=== PATIENT | male | born 1960 | race Caucasian/White ===

== ENCOUNTER 2017-03-22 09:32 | Observation (INO) ==
[2017-03-22] MEDS ORDERED: ENOXAPARIN 100 MG/ML SYRINGE SUBCUT STA (10:17)
[2017-03-22] MEDS ORDERED: ASPIRIN 325 MG TABLET PO STA (10:17)
[2017-03-22] MEDS ORDERED: METOPROLOL TARTRATE 5 MG/5 ML VIAL IV STA (10:17)
--- NOTE | 2017-03-22 10:20 | EKG Report ---
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
[2017-03-22 10:29] LABS: Basophils % 0.6 % (0.0-0.8); Hematocrit 32.8 VOL% (42.0-52.0); Hemoglobin 11.2 GM/DL (14.0-18.0); Immature Granulocytes % 0.6 %; Immature Granulocytes Absolute 0.04 #; Lymphocytes % 29.7 % (21.2-54.2); Mean Corpuscular HGB Conc 34.1 GM/DL (32-36); Mean Corpuscular Hemoglobin 26 PG (27-34); Mean Corpuscular Volume 75.8 FL (87-102); Mean Platelet Volume 9.9 FL (9.6-12.0); Monocytes # 0.8 10*3/uL (0.11-0.8); Monocytes % 10.9 % (1.7-12.7); Neutrophils % 58.2 % (38.7-73.9); Platelet Count 159 T/CUMM (130-400); Red Blood Count 4.33 MC/CUMM (3.8-5.5); Red Cell Distribution Width 13.2 % (9.3-17.3); White Blood Count 6.9 T/CUMM (4-12)
[2017-03-22] MEDS ORDERED: METOPROLOL TARTRATE 5 MG/5 ML VIAL IV ONE (10:32)
[2017-03-22] MEDS ORDERED: ENOXAPARIN 120 MG/0.8 ML SYRINGE SUBCUT ONE (10:32)
[2017-03-22] MEDS ORDERED: ASPIRIN 325 MG TABLET ONE (10:32)
--- NOTE | 2017-03-22 10:57 | XRay Report ---
History: Chest pain Date: 03/22/2017 Study: Chest x-ray PA and lateral Comparison exam: September 06, 2012 chest x-ray The cardiomediastinal silhouette and pulmonary vasculature are unremarkable. The lungs and pleural spaces are clear. The osseous structures are unremarkable. Impression: No acute cardiopulmonary process. No significant interval change PROCEDURE INTERPRETED AT [facility] DEPARTMENT OF RADIOLOGY Final Report Signed by: Dr. Janiya Morales
[2017-03-22 11:01] LABS: Albumin 3.6 G/DL (3.4-5.0); Bilirubin,Total 0.4 MG/DL (0.2-1.0); Calcium 9.4 MG/DL (8.5-10.1); Magnesium 1.5 MG/DL (1.8-2.4); Osmolality,Calculated 280.5 MOS/KG (273-304); Potassium 3.8 MMOL/L (3.5-5.1); Total Protein 6.6 G/DL (6.4-8.3)
--- NOTE | 2017-03-22 11:08 | Ultrasound Report ---
Exam: US abdomen Date: 03/22/2017 10:17 AM Comparison: None Indication: Right upper quadrant pain Technique:[Multiple transabdominal real-time scans were obtained of the abdomen. Color flow scans obtained. Ultrasound images were captured and stored.] Findings: No gallstones identified. The gallbladder is contracted with wall measuring 2.3 mm. CBD is normal in size measuring 3.8 mm. Elongation of the right lobe of the liver with no definite masses. The spleen is enlarged with a splenic index of 986. Right kidney measures 128 mm length. Left kidney measures 125 mm in length. No masses or hydronephrosis. The pancreas, aorta including the aortic bifurcation are obscured by bowel gas. Color flow documented in the IVC and portal vein. Impression: Elongation of the right lobe of liver with nonspecific contraction of the gallbladder. Splenomegaly with a splenic index of 986. The pancreas and aorta are obscured by bowel gas. The Ultrasound images were captured and stored. PROCEDURE INTERPRETED AT [facility] DEPARTMENT OF RADIOLOGY Final Report Signed by: Dr. Cynthia Patterson
--- NOTE | 2017-03-22 11:58 | Emergency Department Note ---
Radha Alvarez Brittany, am scribing for, and in the presence of, Mark Garcia MD 10:24. Jose Alvarez Phillip K, MD, personally performed the services described in this documentation, ascribed by Gabriela Garcia in my presence, and it is both accurate and complete . Arrival - Arrival Chief Complaint: Chest Pain Stated Complaint: chest pain, sob ED Nursing Triage Note: chest pain for several days. reports that over the weekend that he has become increasingly sob over the weekend. was seen by dr andres last week and wore a holter monitor. reports a pain across left side of chest this morning. pt is diaphoretic in triage. reports glucose has also been dropping in the middle of the night the last two nights. Mode of Arrival: Ambulatory Limitations: No Limitations Source: Patient Time Seen by Provider: 03/22/17 10:01 - History of Present Illness HPI Narrative: This is a 56 y/o white male,who presents to the ED with c/o CP which started 9 days ago. He states he was seen by Dr. Andres when the chest pain started. He states he was placed on a heart monitor. He describes the chest pain as sharp. He reports movements do not affect the chest pain. He states he was SOB over the weekend. He denies any nausea or vomiting. He notes a cough, and 2 episodes of hypoglycemia over the past 2 nights. He states last night his BS was 40 and the night before his BS was down to 50. during the night. Pt reports RUQ and LUQ tenderness as well. Pt has no other complaints/pain in the ED at this time. Pt has a PMhx of IDDM, HTN, and PTSD. Pt has had an orthopedic surgery. Pt denies a family medical Hx. Pt is a former smoker. Onset (ago): day(s) (Started 4 days ago) Consistency: constant Severity: moderate Quality: sharp Allergies/Adverse Reactions: Allergies Allergy/AdvReac Type Severity Reaction Status Date / Time Penicillins Allergy Unknown/Unable Verified 03/22/17 11:03 to obtain Tetanus Vaccines and Toxoid AdvReac Fatigued Verified 03/22/17 11:03 Home Medications: Home Medications Medication Instructions Recorded Confirmed Type ALPRAZolam [Xanax] 2 mg PO TID PRN 03/22/17 03/22/17 History Allopurinol 300 mg PO DAILY 03/22/17 03/22/17 History Aspirin Chew Tab 81 mg PO DAILY 03/22/17 03/22/17 History Clotrimazole/Betamethasone Dip 1 applic TOP BID 03/22/17 03/22/17 History [Clotrimazole/Betamethasone Cream] Cyanocobalamin (Vitamin B-12) 5,000 mcg PO DAILY 03/22/17 03/22/17 History [Vitamin B-12] Duloxetine HCl [Cymbalta] 60 mg PO DAILY 03/22/17 03/22/17 History Escitalopram [Lexapro] 20 mg PO DAILY 03/22/17 03/22/17 History Furosemide Tab [Lasix Tab] 40 mg PO DAILY 03/22/17 03/22/17 History Glimepiride 4 mg PO BID 03/22/17 03/22/17 History Glucosamine HCl 1,500 mg PO DAILY 03/22/17 03/22/17 History Hydrocodone/Acetaminophen [[place] 1 each PO QID PRN 03/22/17 03/22/17 History 10-325 Tablet] Levothyroxine Tab [Synthroid Tab] 50 mcg PO DAILY 03/22/17 03/22/17 History Losartan/Hydrochlorothiazide 1 each PO DAILY 03/22/17 03/22/17 History [Losartan-Hctz 100-25 mg Tab] Magnesium Oxide 400 mg PO DAILY 03/22/17 03/22/17 History Metformin HCl 1,000 mg PO BID 03/22/17 03/22/17 History Mupirocin 2% Oint [Bactroban 2% 1 applic TOP TID 03/22/17 03/22/17 History Oint] Omeprazole 40 mg PO DAILY 03/22/17 03/22/17 History Pioglitazone HCl 45 mg PO DAILY 03/22/17 03/22/17 History Potassium Chloride 40 meq PO BID 03/22/17 03/22/17 History Tamsulosin [Flomax] 0.4 mg PO DAILY 03/22/17 03/22/17 History Triamcinolone Acetonide 1 applic TOP BID 03/22/17 03/22/17 History [Triamcinolone 0.1% Cream] cloNIDine HCl [Clonidine HCl] 0.3 mg PO DAILY 03/22/17 03/22/17 History Review of System - Review of System 12 point system: reviewed and no additional remarkable complaints except as stated - Review of System Constitutional: Present: diaphoresis, night sweats Respiratory: Present: cough Cardiovascular: Present: chest pain Gastrointestinal: Absent: nausea, vomiting Medical,Surgical,& Family Hx - Medical History Cardio: History of: Hypertension Psychological: History of: Psychiatric Problems (ptsd) Endocrine: History of: Diabetes Mellitus (IDDM) - Social History Smoking Status: Former smoker Exam Vital Signs: Vital Signs Temperature 97.3 F L 03/22/17 09:45 Pulse Rate 111 H 03/22/17 09:45 Respiratory Rate 18 03/22/17 10:05 Blood Pressure 155/92 03/22/17 09:45 O2 Sat by Pulse Oximetry 98 03/22/17 09:45 - General General appearance: alert, in no apparent distress - Head Head exam: Present: atraumatic, normocephalic, normal inspection - Eye Eye exam: Present: normal appearance, PERRL, EOMI. Absent: nystagmus, miosis, mydriasis - ENT ENT exam: Present: normal exam, normal oropharynx, mucous membranes moist, TM's normal bilaterally, normal external ear exam - Neck Neck exam: Present: normal inspection, full ROM, trachea midline. Absent: tenderness, meningismus, lymphadenopathy, thyromegaly - Chest Chest inspection: Present: normal inspection, symmetric chest wall rise. Absent : tenderness, rash, abscess - Respiratory Respiratory exam: Present: normal lung sounds bilaterally. Absent: rales, respiratory distress, rhonchi, stridor, wheezes - Cardiovascular Cardiovascular exam: Present: normal rhythm, tachycardia, normal heart sounds. Absent: murmur, rubs, gallop, clicks, JVD - Abdominal Exam Abdominal exam: Present: soft, distention, tenderness (RUQ tenderness and LUQ tenderness), normal bowel sounds. Absent: guarding, rebound, rigidity - Rectal Exam Rectal exam: Present: deferred - Extremities Exam Extremities exam: Present: normal inspection, full ROM, normal capillary refill. Absent: tenderness, pedal edema, joint swelling, calf tenderness - Back Exam Back exam: Present: normal inspection, full ROM. Absent: tenderness, muscle spasm, rashes - Neurological Exam Neurological exam: Present: alert, oriented X3, CN II-XII intact. Absent: motor sensory deficit - Psychiatric Psychiatric exam: Present: normal affect, normal mood. Absent: depressed, agitated, anxious, flat affect, manic - Skin Skin exam: Present: warm, dry, intact, normal color. Absent: rash, cyanosis, diaphoresis, erythema, pallor, mottled Course Course Narrative: Patient discussed with the hospitalist. Results - Labs CBC & BMP: 03/22/17 10:21 03/22/17 10:21 Lab Results: I have reviewed the patients labs Labs: Laboratory Tests 03/22/17 03/22/17 03/22/17 10:17 10:21 10:21 WBC 6.9 RBC 4.33 Hgb 11.2 L Hct 32.8 L MCV 75.8 L MCH 26 L MCHC 34.1 RDW 13.2 Plt Count 159 MPV 9.9 Neut % (Auto) 58.2 Lymph % (Auto) 29.7 [place] % (Auto) 10.9 Eos % (Auto) 0.0 Baso % (Auto) 0.6 Neut # (Auto) 4.0 Lymph # (Auto) 2.0 [place] # (Auto) 0.8 Eos # (Auto) 0.0 Baso # (Auto) 0.0 Immature Gran % 0.6 Nucleated RBC % 0.0 Immature Gran # 0.04 Nucleated RBCs # 0.00 Sodium 139 Potassium 3.8 Chloride 101 Carbon Dioxide 26 Anion Gap 15.8 H BUN 20 H Creatinine 0.80 GFR Calculation 138 BUN/Creatinine Ratio 25.00 H Glucose 124 H POC Glucose 124 H Calculated Osmolality 280.5 Calcium 9.4 Magnesium 1.5 L Total Bilirubin 0.40 AST 30 ALT 30 Alkaline Phosphatase 90 Troponin I Total Protein 6.6 Albumin 3.6 Globulin 3.0 Albumin/Globulin Ratio 1.2 Lipase 354.0 03/22/17 10:21 WBC RBC Hgb Hct MCV MCH MCHC RDW Plt Count MPV Neut % (Auto) Lymph % (Auto) [place] % (Auto) Eos % (Auto) Baso % (Auto) Neut # (Auto) Lymph # (Auto) [place] # (Auto) Eos # (Auto) Baso # (Auto) Immature Gran % Nucleated RBC % Immature Gran # Nucleated RBCs # Sodium Potassium Chloride Carbon Dioxide Anion Gap BUN Creatinine GFR Calculation BUN/Creatinine Ratio Glucose POC Glucose Calculated Osmolality Calcium Magnesium Total Bilirubin AST ALT Alkaline Phosphatase Troponin I < 0.015 Total Protein Albumin Globulin Albumin/Globulin Ratio Lipase - EKG EKG results: interpreted by ERMD (Sinus tachycardia, possible old inferior IL) - Diagnostic Findings Procedure: Chest x-ray: report reviewed by me (No acute cardiopulmonary process. No significant interval change), Ultrasound: report reviewed by me ( Abdomen US: Elongation of the right lobe of liver with nonspecific contraction of the gallbladder. Splenomegaly with a splenic index of 986. The pancreas and aorta are obscured by bowel gas. ) Disposition Clinical Impression: Chest pain, Anemia, Right upper quadrant abdominal tenderness, Diabetes, History of hypoglycemia, Sinus tachycardia Case discussed with: patient Disposition: Still a Patient Condition: Guarded
--- NOTE | 2017-03-22 13:42 | EKG Report ---
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
[2017-03-22] MEDS ORDERED: ACETAMINOPHEN 325 MG TABLET PO PRN (13:45)
[2017-03-22] MEDS ORDERED: ONDANSETRON 4 MG/2 ML VIAL IV PRN (13:45)
[2017-03-22] MEDS ORDERED: ALPRAZolam 0.5 MG TABLET PO PRN (13:48)
[2017-03-22] MEDS: ENOXAPARIN 40 MG/0.4 ML SYRINGE SUBCUT SCH (14:38)
[2017-03-22 14:42] LABS: CKMB % 2.2 %; Troponin I Only < 0.015 NG/ML (0.00-0.045)
--- NOTE | 2017-03-22 14:47 | Hospitalist History & Physical ---
Assessment and Plan (1) Chest pain Status: Acute Assessment and plan: Patient admitted for observation overnight. Trend cardiac enzymes. Order cardiac stress test for the a.m. Consult cardiology. Patient is followed by Dr. Andres and was initially scheduled for an outpatient stress test on April 01. Current Visit: Yes (2) Diabetes mellitus Status: Acute Assessment and plan: Accu-Cheks ACHS. Initiate sliding scale per protocol. Continue home medications. Current Visit: Yes (3) Sinus tachycardia Status: Acute Current Visit: Yes History of Present Illness Chief complaint: Chest pain History of present illness: Mr. Arnold is a 56 year old male with a past medical history significant for hypertension, diabetes mellitus, panic attack who presents to the ER with complaints of chest pain with onset 9 days ago. Patient reports that this chest pain began a little over a week ago and he was seen by Dr. Andres last week and placed on a 24-hour Holter monitor. He states that a few days after returning the monitor, he began to feel short of breath with increasing chest pain focus on his right chest wall. He knows that as he has panic attacks frequently, the tachycardia and chest pain is not abnormal. He normally takes Xanax for this pain and it typically resolves. However the pain did not subside this morning. Patient states that he woke up this morning "burning up" and having soaked the bed with sweat. He also notes that his blood sugar was 50 this morning and 40 the night before. Patient currently takes 3 diabetic medications to control his blood sugars including metformin, Amaryl and Actos. On admission, the patient was noted to be in chest pain, shortness of breath and mildly diaphoretic. Patient notes that with oxygen his chest pain subsided. However he was noted to have epigastric tenderness to palpation. Ultrasound of the gallbladder is unremarkable. Patient states that he currently "feels fine". He denies headache, blurry vision, chest pain on inspiration, chest pain to palpation, nausea or vomiting, near syncope, numbness or tingling. Patient noted that he was scheduled to have a stress test on April [address] Andres. Lab work on admission reveal: WBC 6.9, hemoglobin 11.2, hematocrit 32.8, sodium 139, potassium 3.8, chloride 101, BUN 20, creatinine 0.80, glucose 124, magnesium 1.5. Troponin is negative. Chest x -ray is unremarkable. Case been discussed with Dr. Matta, and the patient will be admitted to the hospital medicine service for observation and treatment. Patient is a full code. Home medicines have been reviewed and reconciled. Home Medications Medication Instructions Recorded Confirmed Type ALPRAZolam [Xanax] 2 mg PO TID PRN 03/22/17 03/22/17 History Aspirin Chew Tab 81 mg PO DAILY 03/22/17 03/22/17 History Cyanocobalamin (Vitamin B-12) 5,000 mcg PO DAILY 03/22/17 03/22/17 History [Vitamin B-12] Duloxetine HCl [Cymbalta] 60 mg PO DAILY 03/22/17 03/22/17 History Furosemide Tab [Lasix Tab] 40 mg PO DAILY 03/22/17 03/22/17 History Glimepiride 4 mg PO BID 03/22/17 03/22/17 History Glucosamine HCl 1,500 mg PO DAILY 03/22/17 03/22/17 History Hydrocodone/Acetaminophen [[place] 1 each PO QID PRN 03/22/17 03/22/17 History 10-325 Tablet] Levothyroxine Tab [Synthroid Tab] 50 mcg PO DAILY@0700 03/22/17 03/22/17 History Losartan/Hydrochlorothiazide 1 each PO DAILY 03/22/17 03/22/17 History [Losartan-Hctz 100-25 mg Tab] Magnesium Oxide 400 mg PO DAILY 03/22/17 03/22/17 History Metformin HCl 1,000 mg PO BID 03/22/17 03/22/17 History Methylsulfonylmethane [MSM] 1,500 mg PO DAILY 03/22/17 03/22/17 History Omeprazole 40 mg PO DAILY 03/22/17 03/22/17 History Pioglitazone HCl 45 mg PO DAILY 03/22/17 03/22/17 History Potassium Chloride 40 meq PO BID 03/22/17 03/22/17 History Tamsulosin [Flomax] 0.4 mg PO DAILY 03/22/17 03/22/17 History cloNIDine HCl [Clonidine HCl] 0.3 mg PO DAILY 03/22/17 03/22/17 History Allergies Allergy/AdvReac Type Severity Reaction Status Date / Time Penicillins Allergy Unknown/Unable Verified 03/22/17 11:03 to obtain Tetanus Vaccines and Toxoid AdvReac Fatigued Verified 03/22/17 11:03 Medical,Surgical,& Family Hx - Medical History Cardio: History of: Cardiac Dysrhythmia, Hypertension Psychological: History of: Psychiatric Problems (ptsd) Endocrine: History of: Diabetes Mellitus (IDDM), Dyslipidemia, Thyroid Disorder Gastrointestinal: History of: GERD - Family History Family History: Reports;: Family Heart Disease, Family Hypertension - Social History Smoking Status: Former smoker Frequency of Alcohol Use: None Type of Drug Use: None Marital Status: Lives With:: Alone (Patient lives in [place] while spouse lives in [place]) Functional capacity: independent ambulation - Constitutional Constitutional: Present: night sweats. Absent: chills, fatigue, headache(s) - EENT Eyes: Absent: blurry vision, loss of vision Ears: Absent: decreased hearing, ear pain - Cardiovascular Cardiovascular: Present: chest pain at rest, diaphoresis, dyspnea. Absent: chest pain with activity - Respiratory Respiratory: Present: dyspnea. Absent: cough, wheezing - Gastrointestinal Gastrointestinal: Absent: abdominal pain, nausea, vomiting - Genitourinary Genitourinary: Absent: dysuria, flank pain - Neurological Neurological: Absent: abnormal gait, abnormal speech, dizziness, syncope - Psychiatric Psychiatric: Present: anxiety. Absent: depression - Endocrine Endocrine: Absent: cold intolerance, fatigue - Hematologic/Lymphatic Hematologic/Lymphatic: Absent: easy bleeding, easy bruising Exam - Constitutional Vitals: Period Temp Pulse Resp BP Sys/Zeng Pulse Ox Last 24 Hr 97.3 F-97.5 F 89-111 16-24 108-155/79-92 95-99 Exam: General appearance: obese, no acute distress - Head Head exam: Present: normocephalic, atraumatic - Eye Eye exam: Present: EOMI. Absent: conjunctival injection, nystagmus Pupils: Present: DAVID, normal accommodation - ENT ENT exam: Present: normal exam, normal external ear exam - Neck Neck exam: Present: normal inspection. Absent: lymphadenopathy, tenderness, thyromegaly - Respiratory Respiratory exam: Present: clear to auscultation bilaterally. Absent: rales, rhonchi, wheezes - Cardiovascular Cardiovascular exam: Present: regular rate and rhythm. Absent: carotid bruit, gallop, rubs - GI/Abdominal GI/Abdominal exam: Present: normal bowel sounds. Absent: ascites, distended, mass - Extremities Exam Extremities exam: Present: normal inspection, normal capillary refill. Absent: edema - Back Exam Back exam: Absent: CVA tenderness (L), CVA tenderness (R) - Neurological Exam Neurological exam: Present: alert, oriented X3 - Psychiatric Psychiatric exam: Present: normal affect, normal mood - Skin Skin exam: Present: normal color, warm, dry Results - Labs CBC & BMP: 03/22/17 10:21 03/22/17 10:21 Lab Results: I have reviewed the past 24 hour labs - EKG EKG results: interpreted by ERMD - Diagnostic Findings Procedure: Chest x-ray: image reviewed by me, report reviewed by me
[2017-03-22] MEDS ORDERED: MUPIROCIN 2% OINT 22 GM TUBE TOP SCH (15:00)
--- NOTE | 2017-03-22 16:31 | ECHO Report ---
[facility] Exam Date: 03/22/2017 15:05 Referring Physician: Technologist: Dixie Argueta Age: 56 Ht (in): 72 Wt (lb): 258 Gender: M Exam Location: [facility] Echo Indications: SOB, CP BP: 146 / 79 HR: 99 Rhythm: Sinus Technical Quality: IMPRESSIONS Mild concentric left ventricular hypertrophy. Left ventricular ejection fraction is estimated at 60 %. Diastolic parameters are most consistent with grade 1 diastolic dysfunction or Tricuspid regurgitation velocities suggest a RVSP of 36 mmHg plus the right atrial pressure. impaired relaxation. MEASUREMENTS (Male / Female) Normal Values 2D ECHO LV Diastolic Diameter PLAX 5.3 cm 4.2 - 5.9 / 3.9 - 5.3 cm LV Systolic Diameter PLAX 3.1 cm LV Fractional Shortening PLAX 42.0 % IVS Diastolic Thickness 1.3 cm 0.6 - 1.0 / 0.6 - 0.9 cm LVPW Diastolic Thickness 1.6 cm 0.6 - 1.0 / 0.6 - 0.9 cm RV Internal Dim ED PLAX 3.2 cm Aortic Root Diameter 3.0 cm LA Systolic Diameter LX 4.6 cm 3.0 - 4.0 / 2.7 - 3.8 cm DOPPLER TR Peak Velocity 304.0 cm/s TR Peak Gradient 37.0 mmHg FINDINGS Left Ventricle Mild concentric left ventricular hypertrophy. Left ventricular ejection fraction is estimated at 60 %. Diastolic dysfunction is most consistent with grade 1 diastolic dysfunction impaired relaxation Right Ventricle Mildly increased right ventricular size. Right Atrium The right atrium is mildly enlarged. Left Atrium The left atrium is mildly enlarged. Mitral Valve Mild mitral valve sclerosis. Trace - mild mitral valve regurgitation. Aortic Valve Mild aortic valve sclerosis without stenosis or regurgitation. Tricuspid Valve Morphologically normal tricuspid valve. Mild tricuspid valve regurgitation. Tricuspid regurgitation velocities suggest a RVSP of 36 mmHg plus the right atrial pressure. Pulmonic Valve Morphologically normal pulmonic valve. Trace pulmonary valve regurgitation. Pericardium No pericardial effusion. Aorta Normal size aortic root and proximal ascending aorta. Na Jorge (Electronically Signed) Final Date: 22 March 2017 16:27
[2017-03-22] MEDS ORDERED: MAGNESIUM SULF RIDER 2 GM in PREMIX 1 EACH IV ONE (17:39)
--- NOTE | 2017-03-22 17:39 | Cardiology Consult Note ---
IFrankie April RN, am scribing for, and in the presence of, Mingo Andres MD 17:38. Assessment and Plan - Time spent with patient Time spent with patient: Greater than 30 minutes (Due to assessment, planning, documentation, medication review) (1) Chest pain Status: Acute Assessment and plan: Atypical CP but with cardiac risk factors. Will r/o [place] and plan nuclear stress test tomorrow. Current Visit: Yes (2) Diabetes mellitus Status: Chronic Current Visit: Yes (3) Sinus tachycardia Status: Acute Current Visit: Yes History of Present Illness - Data of Consult Patient: known to practice within the last 3 years Consult date: 03/22/17 Requesting Physician: Gabby Matta Primary care physician: Jeremi Paul - Consult Narrative Reason for consult: Chest pain History of present illness: Document Control Specialist: Dr. Andres PCP: Dr. Paul Mr. Arnold is a 56 year old male who saw Dr. Andres in the office for the first time last week for complaints of tachycardia. He had an EKG done that showed sinus tachycardia heart rate 105. He also had a Holter done, I do not have those results at this time. He was scheduled for a stress test and echo at Dr. Andres's office later this month. He has a history of posttraumatic stress disorder, NIDDM, GERD, and hypertension. He reports he is seeing Dr. Jacobo in the past and denies ever having had a heart catheterization done. He says he has had numerous stress test done throughout the years by Dr. Jacobo or ordered by Dr. Paul. He has been told they were all normal, the most recent one was done in 2012. Surgical history includes removal of skin cancer and tonsillectomy. Family history is significant for father with cancer and stroke, half brother with heart disease, and mother with diabetes. He reports he quit smoking about 10 years ago, however he states he does have an occasional cigarette. He says he has not felt well since August of last year, no specific complaints just generally not feeling well. On or Wednesday of last week he began to get short of breath at rest and he stated this would get worse with exertion. He also stated he noted this was much worse on the heat. Yesterday he began to have chest pain that he describes as a constant dull ache with occasional sharp pains on the right side of his chest. When at its worst he rated it a 7 on a scale of 1-10. He denies any radiation and it is not reproducible. He also denies any dizziness or nausea and vomiting. He says he has had about one spell similar to this every 2 weeks or so since August. He said the episode continued to get worse today and he presented to the emergency department for further evaluation. He noted no triggers or alleviators except he reports the pain and shortness of breath did go away when he was put on oxygen in the emergency department. Of note he also mentions that he has had at least 2 different instances of waking in the middle of night diaphoretic with blood sugars in the 30s and 40s. EKG done in the emergency department showed sinus tachycardia with heart rate of 100, with no changes noted from his last EKG. Chest x-ray showed no acute cardio pulmonary process. He denied any abdominal discomfort to me, but apparently he reported right upper quadrant abdominal pain in the emergency department. Abdominal ultrasound showed elongation of the right lobe of the liver with nonspecific contraction of the gallbladder. Troponin has been negative 2 with a CK-MB of 5.5. Potassium is 3.8, magnesium 1.5. Currently he is resting in bed in no acute distress. He denies any chest pain, shortness of breath, palpitations, or dizziness. Echo has just been done, report is pending. We will schedule for nuclear stress testing in the morning. Current Medications Acetaminophen (Tylenol Tab) 650 mg PO Q4H PRN PRN Reason: Fever, Headache, Mild Pain Hydrocodone Bitart/Acetaminophen (Marshall 10-325) 1 tablet PO QID PRN PRN Reason: Pain Allopurinol (Zyloprim) 300 mg PO DAILY JOE Alprazolam (Xanax) 2 mg PO TID PRN PRN Reason: Anxiety Aspirin () 81 mg PO DAILY [facility] Clonidine HCl (Catapres Tab) 0.3 mg PO DAILY [facility] Cyanocobalamin (Vitamin B12 Tab) 5,000 mcg PO DAILY JOE Duloxetine HCl (Cymbalta) 60 mg PO DAILY [facility] Enoxaparin Sodium (Lovenox) 40 mg SUBCUT Q24H [facility] Last Admin: 03/22/17 14:38 Dose: Not Given Escitalopram Oxalate (Lexapro) 20 mg PO DAILY JOE Furosemide (Lasix Tab) 40 mg PO DAILY [facility] Glimepiride (Amaryl) 4 mg PO BID [facility] Glucosamine Sulfate () 1,500 mg PO DAILY [facility] HCTZ/Losartan Potassium (Hyzaar 50-12.5) 2 tablet PO DAILY [facility] Levothyroxine Sodium (Synthroid Tab) 50 mcg PO DAILY JOE Magnesium Oxide () 400 mg PO DAILY [facility] Metformin HCl (Glucophage) 1,000 mg PO BID [facility] Ondansetron HCl (Zofran Inj) 4 mg IV Q4H PRN PRN Reason: Nausea Pantoprazole Sodium (Protonix Tab) 40 mg PO DAILY [facility] Pioglitazone HCl (Actos) 45 mg PO DAILY [facility] Potassium Chloride (K Dur) 40 meq PO BID [facility] Tamsulosin HCl (Flomax) 0.4 mg PO DAILY [facility] CC: Gabby Matta MD - Home Medications and Allergies Home Medications: Home Medications Medication Instructions Recorded Confirmed Type ALPRAZolam [Xanax] 2 mg PO TID PRN 03/22/17 03/22/17 History Aspirin Chew Tab 81 mg PO DAILY 03/22/17 03/22/17 History Cyanocobalamin (Vitamin B-12) 5,000 mcg PO DAILY 03/22/17 03/22/17 History [Vitamin B-12] Duloxetine HCl [Cymbalta] 60 mg PO DAILY 03/22/17 03/22/17 History Furosemide Tab [Lasix Tab] 40 mg PO DAILY 03/22/17 03/22/17 History Glimepiride 4 mg PO BID 03/22/17 03/22/17 History Glucosamine HCl 1,500 mg PO DAILY 03/22/17 03/22/17 History Hydrocodone/Acetaminophen [Marshall 1 each PO QID PRN 03/22/17 03/22/17 History 10-325 Tablet] Levothyroxine Tab [Synthroid Tab] 50 mcg PO DAILY@0700 03/22/17 03/22/17 History Losartan/Hydrochlorothiazide 1 each PO DAILY 03/22/17 03/22/17 History [Losartan-Hctz 100-25 mg Tab] Magnesium Oxide 400 mg PO DAILY 03/22/17 03/22/17 History Metformin HCl 1,000 mg PO BID 03/22/17 03/22/17 History Methylsulfonylmethane [MSM] 1,500 mg PO DAILY 03/22/17 03/22/17 History Omeprazole 40 mg PO DAILY 03/22/17 03/22/17 History Pioglitazone HCl 45 mg PO DAILY 03/22/17 03/22/17 History Potassium Chloride 40 meq PO BID 03/22/17 03/22/17 History Tamsulosin [Flomax] 0.4 mg PO DAILY 03/22/17 03/22/17 History cloNIDine HCl [Clonidine HCl] 0.3 mg PO DAILY 03/22/17 03/22/17 History Allergies/Adverse Reactions: Allergies Allergy/AdvReac Type Severity Reaction Status Date / Time Penicillins Allergy Unknown/Unable Verified 03/22/17 11:03 to obtain Tetanus Vaccines and Toxoid AdvReac Fatigued Verified 03/22/17 11:03 - Constitutional Constitutional: Present: as per HPI - EENT Eyes: Present: requires corrective lense. Absent: blurry vision Ears: Present: tinnitus. Absent: decreased hearing, ear pain Nose, mouth and throat: Present: headache(s). Absent: dysphagia, epistaxis, neck pain - Cardiovascular Cardiovascular: Present: chest pain at rest, dyspnea, dyspnea on exertion, palpitations. Absent: edema, radiating jaw, neck or arm pain, lightheadedness, orthopnea - Respiratory Respiratory: Present: cough, dyspnea, dyspnea on exertion. Absent: hemoptysis, wheezing - Gastrointestinal Gastrointestinal: Present: diarrhea. Absent: abdominal pain, constipation, hematemesis, hematochezia, melena, nausea, vomiting - Genitourinary Genitourinary: Absent: dysuria, hematuria - Musculoskeletal Musculoskeletal: Present: back pain, limited range of motion, muscle weakness - Neurological Neurological: Present: abnormal gait, dizziness, other (Near-syncope). Absent: confusion, frequent falls, syncope - Psychiatric Psychiatric: Absent: confusion, depression - Endocrine Endocrine: Present: fatigue - Hematologic/Lymphatic Hematologic/Lymphatic: Present: easy bruising. Absent: easy bleeding Medical,Surgical,& Family Hx - Medical History Cardio: History of: Cardiac Dysrhythmia, Hypertension Psychological: History of: Psychiatric Problems (ptsd) Endocrine: History of: Diabetes Mellitus (NIDDM), Dyslipidemia, Thyroid Disorder Gastrointestinal: History of: GERD - Surgical History HEENT Surgeries: Surgical HX of: Tonsilectomy & Adenoidectomy Additional Surgical History: Skin cancer removal - Family History Family History: Reports;: Family Cancer (Other), Family Diabetes (Mother), Family Heart Disease (Half-brother), Family Stroke (Father) - Social History Smoking Status: Former smoker (Reports he quit smoking 10 years ago, rarely smokes an occasional cigarette) Have you smoked in the last 12 months: Yes Frequency of Alcohol Use: None Type of Drug Use: None Marital Status: Lives With:: Spouse Functional capacity: uses cane/walker (Occasionally) Physical Examination Vital Signs Temp Pulse Resp BP Pulse Ox 97.3 F L 111 H 24 155/92 98 03/22/17 09:45 03/22/17 09:45 03/22/17 09:45 03/22/17 09:45 03/22/17 09:45 General: Present: Appears Well, No Apparent Distress HEENT: Present: PERRL, Mucus Membranes Moist Neck: Present: Supple Neck, Midline Trachea, No Bruit Cardiac: Present: Reg Rate and Rhythm, No Murmur, Tachycardia Lungs: Present: Normal Breath Sounds, No Wheeze, Rales, Rhonchi Neuro: Absent: Resting Tremor, Essential Tremor Abdomen: Present: Soft, Active Bowel Sounds, Non-Tender Skin: Absent: Rash, Suspicious Lesions Musculoskeletal: Present: Decreased Range of Motion, Pain in Joint Gait: Present: Poor Gait Extremities: Present: No Edema, Normal Upper Extr. Pulses, Normal Lower Extr. Pulses. Absent: Normal Gait Result/EKG - Labs CBC & BMP: 03/22/17 10:21 03/22/17 10:21 Lab Results: I have reviewed the past 24 hour labs Labs: Laboratory Results - last 24 hr 03/22/17 03/22/17 03/22/17 10: 10:21 10:21 WBC 6.9 RBC 4.33 Hgb 11.2 L Hct 32.8 L MCV 75.8 L MCH 26 L MCHC 34.1 RDW 13.2 Plt Count 159 MPV 9.9 Neut % (Auto) 58.2 Lymph % (Auto) 29.7 [place] % (Auto) 10.9 Eos % (Auto) 0.0 Baso % (Auto) 0.6 Neut # (Auto) 4.0 Lymph # (Auto) 2.0 [place] # (Auto) 0.8 Eos # (Auto) 0.0 Baso # (Auto) 0.0 Immature Gran % 0.6 Nucleated RBC % 0.0 Immature Gran # 0.04 Nucleated RBCs # 0.00 Sodium 139 Potassium 3.8 Chloride 101 Carbon Dioxide 26 Anion Gap 15.8 H BUN 20 H Creatinine 0.80 GFR Calculation 138 BUN/Creatinine Ratio 25.00 H Glucose 124 H POC Glucose 124 H Calculated Osmolality 280.5 Calcium 9.4 Magnesium 1.5 L Total Bilirubin 0.40 AST 30 ALT 30 Alkaline Phosphatase 90 Total Creatine Kinase CK-MB (CK-2) CK and CKMB Interp Troponin I Total Protein 6.6 Albumin 3.6 Globulin 3.0 Albumin/Globulin Ratio 1.2 Lipase 354.0 03/22/17 03/22/17 10:21 14:07 WBC RBC Hgb Hct MCV MCH MCHC RDW Plt Count MPV Neut % (Auto) Lymph % (Auto) [place] % (Auto) Eos % (Auto) Baso % (Auto) Neut # (Auto) Lymph # (Auto) [place] # (Auto) Eos # (Auto) Baso # (Auto) Immature Gran % Nucleated RBC % Immature Gran # Nucleated RBCs # Sodium Potassium Chloride Carbon Dioxide Anion Gap BUN Creatinine GFR Calculation BUN/Creatinine Ratio Glucose POC Glucose Calculated Osmolality Calcium Magnesium Total Bilirubin AST ALT Alkaline Phosphatase Total Creatine Kinase 255 CK-MB (CK-2) 5.5 H CK and CKMB Interp 2.2 Troponin I < 0.015 < 0.015 Total Protein Albumin Globulin Albumin/Globulin Ratio Lipase - Diagnostic Findings Procedure: Chest x-ray: report reviewed by me - EKG EKG results: interpreted by me EKG shows: tachycardia, sinus rhythm IDmitry Michael, MD, personally performed the services described in this documentation, ascribed by Kristel David RN in my presence, and it is both accurate and complete .
[2017-03-22] MEDS ORDERED: TRIAMCINOLONE 0.1% CREAM 15 GM TUBE TOP SCH (21:00)
[2017-03-22] MEDS ORDERED: CLOTRIMAZOLE/BETAMETHASONE CREAM 15 GM TUBE TOP SCH (21:00)
[2017-03-22 22:23] LABS: Troponin I Only < 0.015 NG/ML (0.00-0.045)
[2017-03-22] MEDS: metFORMIN 500 MG TABLET PO SCH (22:24)
[2017-03-22] MEDS: POTASSIUM CHLORIDE 20 MEQ TABLET PO SCH (22:24)
[2017-03-22] MEDS: GLIMEPIRIDE 4 MG TABLET PO SCH (22:25)
[2017-03-23 02:25] LABS: Basophils % 0.6 % (0.0-0.8); Hematocrit 31.2 VOL% (42.0-52.0); Hemoglobin 10.5 GM/DL (14.0-18.0); Immature Granulocytes % 0.7 %; Immature Granulocytes Absolute 0.05 #; Mean Corpuscular HGB Conc 33.7 GM/DL (32-36); Mean Corpuscular Hemoglobin 25 PG (27-34); Mean Corpuscular Volume 75.5 FL (87-102); Mean Platelet Volume 10.1 FL (9.6-12.0); Monocytes # 0.8 10*3/uL (0.11-0.8); Monocytes % 12.4 % (1.7-12.7); Neutrophils # 2.9 10*3/uL (1.4-7.4); Neutrophils % 42.3 % (38.7-73.9); Platelet Count 171 T/CUMM (130-400); Red Blood Count 4.13 MC/CUMM (3.8-5.5); Red Cell Distribution Width 13.2 % (9.3-17.3); White Blood Count 6.8 T/CUMM (4-12)
[2017-03-23 02:52] LABS: CKMB % 1.9 %; Troponin I Only < 0.015 NG/ML (0.00-0.045)
[2017-03-23 02:57] LABS: Albumin 3.5 G/DL (3.4-5.0); Bilirubin,Total 0.4 MG/DL (0.2-1.0); Calcium 9.1 MG/DL (8.5-10.1); Magnesium 1.7 MG/DL (1.8-2.4); Osmolality,Calculated 280.4 MOS/KG (273-304); Potassium 3.6 MMOL/L (3.5-5.1); Risk Ratio 7.18; Thyroid Stimulating Hormone 4.69 uIU/ml (0.358-3.74); Total Protein 6.4 G/DL (6.4-8.3); VLDL CHOLESTEROL 41.2 MG/DL
[2017-03-23] MEDS ORDERED: REGADENOSON 0.4 MG/5 ML SYRINGE IV ONE (08:54)
[2017-03-23] MEDS ORDERED: PANTOPRAZOLE 40 MG TABLET PO SCH (09:00)
[2017-03-23] MEDS ORDERED: LEVOTHYROXINE 50 MCG TABLET PO SCH (09:00)
[2017-03-23] MEDS ORDERED: GLUCOSAMINE 500 MG TABLET PO SCH (09:00)
[2017-03-23] MEDS ORDERED: MAGNESIUM OXIDE 400 MG TABLET PO SCH (09:00)
[2017-03-23] MEDS ORDERED: DULoxetine 30 MG CAPSULE PO SCH (09:00)
[2017-03-23] MEDS ORDERED: ESCITALOPRAM 10 MG TABLET PO SCH (09:00)
[2017-03-23] MEDS ORDERED: ALLOPURINOL 300 MG TABLET PO SCH (09:00)
[2017-03-23] MEDS ORDERED: PIOGLITAZONE 45 MG TABLET PO SCH (09:00)
[2017-03-23] MEDS ORDERED: CYANOCOBALAMIN 500 MCG TABLET PO SCH (09:00)
[2017-03-23] MEDS ORDERED: FUROSEMIDE 40 MG TABLET PO SCH (09:00)
[2017-03-23] MEDS ORDERED: TAMSULOSIN 0.4 MG CAPSULE PO SCH (09:00)
--- NOTE | 2017-03-23 09:13 | Cardiology Progress Note ---
Assessment and Plan - Time spent with patient Time spent with patient: Greater than 30 minutes Time spent discussing smoking cessation with patient: 3 to 10 minutes (1) Hypertension Status: Chronic Assessment and plan: SEE PLAN OF CARE LISTED BELOW Current Visit: Yes (2) Sleep disorder Status: Chronic Assessment and plan: SEE PLAN OF CARE LISTED BELOW Current Visit: Yes (3) Chest pain Status: Acute Assessment and plan: SEE PLAN OF CARE LISTED BELOW Current Visit: Yes (4) Diabetes mellitus Status: Chronic Assessment and plan: SEE PLAN OF CARE LISTED BELOW Current Visit: Yes Cardiology - PN: Subj Interval history: MFT: DR. ANDRES PCP: DR. RIVERA Mr. Arnold, 56WM, admitted March 22, 2017 with complaints of shortness of breath , chest pain, palpitations, and fatigue. History of hypertension, tobaccoism, PTSD, GERD. year old male who saw Dr. Andres in the office for the first time last week for complaints of tachycardia. Recently established cardiology care with Dr. Andres for palpitations. (Previously saw Dr. Jacobo but denies ever having had invasive cardiac workup is.) He has been housed on our telemetry unit overnight. Cardiac biomarkers are negative, EKG is unremarkable. Echo reveals: EF 60%, this morning, grade 1 diastolic dysfunction , RVSP 36 mmHg + RAP. Scheduled for stress testing this morning. Overnight, patient reports he did not sleep well. He continued to be awakened frequently, had a headache, required numerous IV stick attempts. Reports he felt his heart "skipping beats" throughout the night. No arrhythmia noted per telemetry strips. Denies chest pain. ASSESSMENT/PLAN: 1. CHEST PAIN - NPO for stress testing. 2. HYPERTENSION - Not on betablockade and may benefit given complaints of palpitations. Had outpatient holter (results not available). Pending results may be a good candidate. 3. DIABETES - continue current plan of care. 4. PALPITATIONS - being worked-up outpatient. May benefit from event monitor. 5. SUSPECTED SLEEP DISORDER - patient should be considered for outpatient sleep study. Exam (Progress Note) - Constitutional Vitals: Period Temp Pulse Resp BP Sys/Zeng Pulse Ox Last 24 Hr 97.3 F-99.7 F 89-111 16-24 108-166/74-92 95-99 Exam: General: [Appears well with no apparent distress.] [Pleasant and cooperative. ] [Appears comfortable.] HEENT: [PERRL, normocephalic, atraumatic. Mucous membranes moist. No jaundice noted. Conjunctiva moist and clear, sclerae anicteric] Neck: Unable to assess for JVD due to habitus. No thyromegaly or lymphadenopathy noted. No carotid bruit appreciated Cardiac: [Regular rate and rhythm.] [No murmur rub or gallop.] Lungs: [Clear to auscultation without accessory muscle use to assist the respiratory pattern.] Not requiring oxygen Abdomen: Soft, bowel sounds normoactive. Nontender and nondistended. No abdominal bruit or thrill noted. No masses noted. Musculoskeletal: No fluid collection. Decreased range of motion is noted. Extremities: No clubbing, cyanosis noted. [ No edema noted.] Upper extremity pulses 2+. Lower extremity pulses 2+. Capillary refill less than 3 seconds. Skin: No unusual lesions or rashes. No skin breakdown appreciated. Neuro: Awake, alert and oriented 3. Moves all extremities well without hemiparesis or paralysis. No essential tremor is appreciated. Result/EKG - Labs CBC & BMP: 03/23/17 02:00 03/23/17 02:00 Lab Results: I have reviewed the past 24 hour labs Labs: Laboratory Results - last 24 hr 03/22/17 03/22/17 03/22/17 10:17 10:21 10:21 WBC 6.9 RBC 4.33 Hgb 11.2 L Hct 32.8 L MCV 75.8 L MCH 26 L MCHC 34.1 RDW 13.2 Plt Count 159 MPV 9.9 Neut % (Auto) 58.2 Lymph % (Auto) 29.7 [place] % (Auto) 10.9 Eos % (Auto) 0.0 Baso % (Auto) 0.6 Neut # (Auto) 4.0 Lymph # (Auto) 2.0 [place] # (Auto) 0.8 Eos # (Auto) 0.0 Baso # (Auto) 0.0 Immature Gran % 0.6 Nucleated RBC % 0.0 Immature Gran # 0.04 Nucleated RBCs # 0.00 Sodium 139 Potassium 3.8 Chloride 101 Carbon Dioxide 26 Anion Gap 15.8 H BUN 20 H Creatinine 0.80 GFR Calculation 138 BUN/Creatinine Ratio 25.00 H Glucose 124 H POC Glucose 124 H Calculated Osmolality 280.5 Calcium 9.4 Magnesium 1.5 L Total Bilirubin 0.40 AST 30 ALT 30 Alkaline Phosphatase 90 Total Creatine Kinase CK-MB (CK-2) CK and CKMB Interp Troponin I Total Protein 6.6 Albumin 3.6 Globulin 3.0 Albumin/Globulin Ratio 1.2 Triglycerides Cholesterol LDL Cholesterol VLDL Cholesterol HDL Cholesterol Heart Disease Risk Ratio Lipase 354.0 Free T4 TSH 3rd Generation 03/22/17 03/22/17 03/22/17 10:21 14:07 18:37 WBC RBC Hgb Hct MCV MCH MCHC RDW Plt Count MPV Neut % (Auto) Lymph % (Auto) [place] % (Auto) Eos % (Auto) Baso % (Auto) Neut # (Auto) Lymph # (Auto) [place] # (Auto) Eos # (Auto) Baso # (Auto) Immature Gran % Nucleated RBC % Immature Gran # Nucleated RBCs # Sodium Potassium Chloride Carbon Dioxide Anion Gap BUN Creatinine GFR Calculation BUN/Creatinine Ratio Glucose POC Glucose Calculated Osmolality Calcium Magnesium Total Bilirubin AST ALT Alkaline Phosphatase Total Creatine Kinase 255 CK-MB (CK-2) 5.5 H CK and CKMB Interp 2.2 Troponin I < 0.015 < 0.015 < 0.015 Total Protein Albumin Globulin Albumin/Globulin Ratio Triglycerides Cholesterol LDL Cholesterol VLDL Cholesterol HDL Cholesterol Heart Disease Risk Ratio Lipase Free T4 TSH 3rd Generation 03/22/17 03/23/17 03/23/17 21:41 01:15 02:00 WBC RBC Hgb Hct MCV MCH MCHC RDW Plt Count MPV Neut % (Auto) Lymph % (Auto) [place] % (Auto) Eos % (Auto) Baso % (Auto) Neut # (Auto) Lymph # (Auto) [place] # (Auto) Eos # (Auto) Baso # (Auto) Immature Gran % Nucleated RBC % Immature Gran # Nucleated RBCs # Sodium Potassium Chloride Carbon Dioxide Anion Gap BUN Creatinine GFR Calculation BUN/Creatinine Ratio Glucose POC Glucose 127 H Calculated Osmolality Calcium Magnesium Total Bilirubin AST ALT Alkaline Phosphatase Total Creatine Kinase 267 279 CK-MB (CK-2) 4.9 H 5.4 H CK and CKMB Interp 1.9 Troponin I < 0.015 < 0.015 Total Protein Albumin Globulin Albumin/Globulin Ratio Triglycerides Cholesterol LDL Cholesterol VLDL Cholesterol HDL Cholesterol Heart Disease Risk Ratio Lipase Free T4 TSH 3rd Generation 03/23/17 03/23/17 03/23/17 02:00 02:00 02:00 WBC 6.8 RBC 4.13 Hgb 10.5 L Hct 31.2 L MCV 75.5 L MCH 25 L MCHC 33.7 RDW 13.2 Plt Count 171 MPV 10.1 Neut % (Auto) 42.3 Lymph % (Auto) 44.0 [place] % (Auto) 12.4 Eos % (Auto) 0.0 Baso % (Auto) 0.6 Neut # (Auto) 2.9 Lymph # (Auto) 3.0 [place] # (Auto) 0.8 Eos # (Auto) 0.0 Baso # (Auto) 0.0 Immature Gran % 0.7 Nucleated RBC % 0.0 Immature Gran # 0.05 Nucleated RBCs # 0.00 Sodium 140 Potassium 3.6 Chloride 102 Carbon Dioxide 28 Anion Gap 13.6 BUN 18 Creatinine 0.80 GFR Calculation 140 BUN/Creatinine Ratio 22.00 H Glucose 101 POC Glucose Calculated Osmolality 280.4 Calcium 9.1 Magnesium 1.7 L Total Bilirubin 0.40 AST 30 ALT 30 Alkaline Phosphatase 91 Total Creatine Kinase CK-MB (CK-2) CK and CKMB Interp Troponin I Total Protein 6.4 Albumin 3.5 Globulin 2.9 Albumin/Globulin Ratio 1.2 Triglycerides 206 H Cholesterol 122 LDL Cholesterol 77.0 VLDL Cholesterol 41.2 HDL Cholesterol 17 L Heart Disease Risk Ratio 7.18 Lipase Free T4 1.19 TSH 3rd Generation 4.690 H - Diagnostic Findings Procedure: Chest x-ray: report reviewed by me - EKG EKG results: interpreted by me EKG shows: sinus rhythm
--- NOTE | 2017-03-23 09:21 | Event Note ---
Underwent Lexiscan stress testing without complaints of chest pain. No significant ST changes noted. Occasional PVC, once in a trigeminal fashion. Experienced nausea and dry heaving. Blood pressure responded appropriately during procedure. Now, to nuclear medicine for completion of final scan. Dr. Andres to read, interpret and advise.
[2017-03-23] MEDS: ASPIRIN CHEW 81 MG TABLET PO SCH ×2 (10:55→12:12)
[2017-03-23] MEDS: GLIMEPIRIDE 4 MG TABLET PO SCH (10:55)
[2017-03-23] MEDS: LOSARTAN/HCTZ 50-12.5 MG TABLET PO SCH ×2 (10:56→12:12)
[2017-03-23] MEDS: POTASSIUM CHLORIDE 20 MEQ TABLET PO SCH (10:56)
[2017-03-23] MEDS: metFORMIN 500 MG TABLET PO SCH (10:56)
[2017-03-23] MEDS ORDERED: HEPARIN/NACL 0.9% 2 UNITS/ML 1,000 ML IV ONE (12:56)
[2017-03-23] MEDS ORDERED: LIDOCAINE 1% 20 ML VIAL ONE ×2 (12:56→14:35)
[2017-03-23] MEDS ORDERED: DIAZEPAM 5 MG TABLET PO ONE (13:12)
[2017-03-23] MEDS ORDERED: diphenhydrAMINE CAP 50 MG CAPSULE PO ONE (13:13)
[2017-03-23] MEDS ORDERED: SODIUM CHLORIDE 0.9% 1,000 ML IV SCH (13:30)
[2017-03-23] MEDS ORDERED: DIAZEPAM 5 MG TABLET PO SCH (14:00)
[2017-03-23] MEDS ORDERED: diphenhydrAMINE CAP 50 MG CAPSULE PO SCH (14:00)
[2017-03-23] MEDS: ENOXAPARIN 40 MG/0.4 ML SYRINGE SUBCUT SCH (14:25)
[2017-03-23] MEDS ORDERED: HYDROmorphone 2 MG/1 ML VIAL ONE ×2 (14:34→15:26)
[2017-03-23] MEDS ORDERED: NITROGLYCERIN DRIP 50 MG/250 ML BOTTLE IV ONE (14:35)
[2017-03-23] MEDS ORDERED: VERAPAMIL 5 MG/2 ML VIAL ONE (14:35)
[2017-03-23] MEDS ORDERED: MIDAZOLAM 2 MG/2 ML VIAL ONE ×2 (14:35→15:12)
--- NOTE | 2017-03-23 14:42 | Nuclear Medicine Report ---
DATE: 03/23/2017 NUCLEAR STRESS TEST Mr. Arnold is a 56-year-old male who has risk factors for coronary artery disease and symptoms olinda rning for angina. He is undergoing a Lexiscan protocol nuclear stress test. He underwent rest myoca rdial perfusion study after 10 mCi of technetium-99m bound to sestamibi. He then underwent a Lexisca n protocol test. During the stress portion of the study, he received 30 mCi of technetium-99m bound to sestamibi. Repeat myocardial perfusion imaging was performed. Comparison of the stress and rest myocardial perfusion images reveals very [id number] ischemia in the mid anterior wall. This cou ld be soft tissue attenuation. There is also very minimal thinning at the apex, which could also be soft tissue related. During the study, he had no clinical or EKG changes to suggest cardiac ischemia . He did have occasional premature ventricular contractions. Quantitative gated images calculated l eft ventricular ejection fraction of 71% with normal regional wall motion. Quantitative perfusion an alysis calculated summed stress score 0, which is consistent with a low-risk test. IMPRESSION: 1. CLINICALLY AND ELECTRICALLY NEGATIVE LEXISCAN PROTOCOL STRESS TEST. 2. THERE IS VERY [id number] ISCHEMIA IN THE MID ANTERIOR WALL REGION, WHICH MAY REPRESENT SOFT TISSUE ATTENUATION. CLINICAL CORRELATION IS RECOMMENDED. THERE IS ALSO MINIMAL THINNING AT THE APEX , WHICH APPEARS TO BE SOFT TISSUE ATTENUATION. 3. LEFT VENTRICULAR EJECTION FRACTION IS NORMAL. CONCLUSION: These results are most consistent with a low-risk test. However, there is a mild area o f perfusion abnormality in anterior wall distribution as described above. Clinical correlation is re commended. Procedure performed and interpreted at [facility] Department of Radiology.
--- NOTE | 2017-03-23 15:39 | Cardiac Catheterization ---
Date of Procedure:: 03/23/17 Procedure: CLINICAL HISTORY: Please see the history and physical. The patient has cardiac risk factors with an abnormal stress test. He is undergoing cardiac catheterization for definitive coronary assessment possible revascularization. PROCEDURES PERFORMED: 1. Right radial percutaneous arteriotomy 2. Left heart catheterization 3. Resting hemodynamics 4. Left ventriculography. 5. Coronary arteriography 6. Hemoband placement DESCRIPTION OF PROCEDURE: After obtaining informed consent, the patient was taken to the label printing machinist, prepped and draped in the usual sterile manner. We accessed the right radial artery using modified Seldinger technique in the usual fashion. We placed a 6-[place] slim sheath without difficulty. We then used a Tig catheter to engage the right coronary and left main coronary arteries to perform angiography in multiple orthogonal views. There were no problems or complications during the procedure. We then used an angled pigtail catheter to perform a left heart catheterization with left ventriculogram and pressure measurement in the usual fashion. After removing the catheter, we placed a HemoBand and removed the sheath without difficulty. There were no problems during the case. HEMODYNAMICS: Please see the accompanying data sheet. CORONARIES: The left main coronary artery is a large-caliber vessel which bifurcates into the left anterior descending and left circumflex coronary arteries. The left main coronary artery is angiographically free of significant obstructive disease. The left circumflex coronary artery is a large-caliber vessel which gives off a very small first obtuse marginal branch and a large bifurcating second obtuse marginal branch. The left circumflex coronary artery and extremities are angiographically free of significant obstructive disease. The left anterior descending is a large-caliber vessel which gives off a moderate-sized diagonal branch. The left anterior descending coronary artery and its tributaries are angiographically free of significant obstructive disease. The right coronary artery is a large-caliber vessel which gives off the posterior descending artery and a posterior lateral system. The right coronary artery is angiographically free of significant obstructive disease. LEFT VENTRICULOGRAPHY: Left ventriculogram shows left ventricular ejection fraction of approximately 65-70% with normal regional wall motion. IMPRESSION: 1. There is no significant obstructive coronary artery disease. 2. Normal left ventricular systolic function. PLAN: The patient will be transferred back to his room for recovery. We can probably discharge him home later today if he remains stable. He does have mild sinus tachycardia and I will be starting treatment for this. We will follow-up with him in the clinic in a week or 2 as scheduled. Anesthesia: minimal conscious sedation Surgeon / Physician: Mingo Andres Condition: stable Disposition: floor - Medications / Follow-up
--- NOTE | 2017-03-23 15:51 | Cardiology Progress Note ---
Assessment and Plan - Time spent with patient Time spent with patient: Greater than 30 minutes (1) Hypertension Status: Chronic Assessment and plan: SEE PLAN OF CARE LISTED BELOW Current Visit: Yes (2) Sleep disorder Status: Chronic Assessment and plan: SEE PLAN OF CARE LISTED BELOW Current Visit: Yes (3) Chest pain Status: Acute Assessment and plan: SEE PLAN OF CARE LISTED BELOW Current Visit: Yes (4) Diabetes mellitus Status: Chronic Assessment and plan: SEE PLAN OF CARE LISTED BELOW Current Visit: Yes (5) PVC (premature ventricular contraction) Status: Acute Assessment and plan: starting [email or web address] Current Visit: Yes Cardiology - PN: Subj Interval history: Patient underwent cardiac catheterization this afternoon, performed by Dr. Andres with the following noted: IMPRESSION: 1. There is no significant obstructive coronary artery disease. 2. Normal left ventricular systolic function. Tolerated the procedure well without complication was returned to our telemetry unit in stable condition. Patient would like to be released home today and from a cardiology standpoint, he should be stable for discharge this afternoon. He will be started on low-dose beta blockade and given a follow-up appointment in approximately 1-[address] Andres. Patient did have occasional PVCs, palpitations with mild sinus tachycardia. He is being discharged home on Toprol XL 50 mg's orally daily. Exam (Progress Note) - Constitutional Vitals: Period Temp Pulse Resp BP Sys/Zeng Pulse Ox Last 24 Hr 97.4 F-99.7 F 98-108 18-20 133-166/74-85 96-97 Exam: General: [Appears well with no apparent distress.] [Pleasant and cooperative. ] [Appears comfortable.] HEENT: [PERRL, normocephalic, atraumatic. Mucous membranes moist. No jaundice noted. Conjunctiva moist and clear, sclerae anicteric] Neck: Unable to assess for JVD due to habitus. No thyromegaly or lymphadenopathy noted. No carotid bruit appreciated Cardiac: [Regular rate and rhythm.] [No murmur rub or gallop.] Lungs: [Clear to auscultation without accessory muscle use to assist the respiratory pattern.] Not requiring oxygen Abdomen: Soft, bowel sounds normoactive. Nontender and nondistended. No abdominal bruit or thrill noted. No masses noted. Musculoskeletal: No fluid collection. Decreased range of motion is noted. Extremities: No clubbing, cyanosis noted. [ No edema noted.] Right radial pulse 2+ without hematoma. Lower extremity pulses 2+. Capillary refill less than 3 seconds. Skin: No unusual lesions or rashes. No skin breakdown appreciated. Neuro: Awake, alert and oriented 3. Moves all extremities well without hemiparesis or paralysis. No essential tremor is appreciated. Result/EKG - Labs CBC & BMP: 03/23/17 02:00 03/23/17 02:00 Lab Results: I have reviewed the past 24 hour labs Labs: Laboratory Results - last 24 hr 03/22/17 03/22/17 03/23/17 18:37 21:41 01:15 WBC RBC Hgb Hct MCV MCH MCHC RDW Plt Count MPV Neut % (Auto) Lymph % (Auto) [place] % (Auto) Eos % (Auto) Baso % (Auto) Neut # (Auto) Lymph # (Auto) [place] # (Auto) Eos # (Auto) Baso # (Auto) Immature Gran % Nucleated RBC % Immature Gran # Nucleated RBCs # Sodium Potassium Chloride Carbon Dioxide Anion Gap BUN Creatinine GFR Calculation BUN/Creatinine Ratio Glucose POC Glucose 127 H Calculated Osmolality Calcium Magnesium Total Bilirubin AST ALT Alkaline Phosphatase Total Creatine Kinase 267 CK-MB (CK-2) 4.9 H CK and CKMB Interp Troponin I < 0.015 < 0.015 Total Protein Albumin Globulin Albumin/Globulin Ratio Triglycerides Cholesterol LDL Cholesterol VLDL Cholesterol HDL Cholesterol Heart Disease Risk Ratio Free T4 TSH 3rd Generation 03/23/17 03/23/17 03/23/17 02:00 02:00 02:00 WBC 6.8 RBC 4.13 Hgb 10.5 L Hct 31.2 L MCV 75.5 L MCH 25 L MCHC 33.7 RDW 13.2 Plt Count 171 MPV 10.1 Neut % (Auto) 42.3 Lymph % (Auto) 44.0 [place] % (Auto) 12.4 Eos % (Auto) 0.0 Baso % (Auto) 0.6 Neut # (Auto) 2.9 Lymph # (Auto) 3.0 [place] # (Auto) 0.8 Eos # (Auto) 0.0 Baso # (Auto) 0.0 Immature Gran % 0.7 Nucleated RBC % 0.0 Immature Gran # 0.05 Nucleated RBCs # 0.00 Sodium 140 Potassium 3.6 Chloride 102 Carbon Dioxide 28 Anion Gap 13.6 BUN 18 Creatinine 0.80 GFR Calculation 140 BUN/Creatinine Ratio 22.00 H Glucose 101 POC Glucose Calculated Osmolality 280.4 Calcium 9.1 Magnesium 1.7 L Total Bilirubin 0.40 AST 30 ALT 30 Alkaline Phosphatase 91 Total Creatine Kinase 279 CK-MB (CK-2) 5.4 H CK and CKMB Interp 1.9 Troponin I < 0.015 Total Protein 6.4 Albumin 3.5 Globulin 2.9 Albumin/Globulin Ratio 1.2 Triglycerides 206 H Cholesterol 122 LDL Cholesterol 77.0 VLDL Cholesterol 41.2 HDL Cholesterol 17 L Heart Disease Risk Ratio 7.18 Free T4 TSH 3rd Generation 4.690 H 03/23/17 02:00 WBC RBC Hgb Hct MCV MCH MCHC RDW Plt Count MPV Neut % (Auto) Lymph % (Auto) [place] % (Auto) Eos % (Auto) Baso % (Auto) Neut # (Auto) Lymph # (Auto) [place] # (Auto) Eos # (Auto) Baso # (Auto) Immature Gran % Nucleated RBC % Immature Gran # Nucleated RBCs # Sodium Potassium Chloride Carbon Dioxide Anion Gap BUN Creatinine GFR Calculation BUN/Creatinine Ratio Glucose POC Glucose Calculated Osmolality Calcium Magnesium Total Bilirubin AST ALT Alkaline Phosphatase Total Creatine Kinase CK-MB (CK-2) CK and CKMB Interp Troponin I Total Protein Albumin Globulin Albumin/Globulin Ratio Triglycerides Cholesterol LDL Cholesterol VLDL Cholesterol HDL Cholesterol Heart Disease Risk Ratio Free T4 1.19 TSH 3rd Generation - Diagnostic Findings Procedure: Chest x-ray: report reviewed by me - EKG EKG results: interpreted by me EKG shows: sinus rhythm Specialty Discharge - Follow Up or Referrals Follow up with: Mingo Andres MD [Physician] - (2 weeks. Already has stress test scheduled at [facility]. Please ask patient to call and cancel stress test tomorrow since he already had one.)
[2017-03-23] MEDS ORDERED: METOPROLOL SUCCINATE XL 50 MG TABLET PO SCH (16:00)
--- NOTE | 2017-03-23 16:50 | Discharge Summary ---
Hospital Course - Hospital Course Hospital Course: 56-year-old male admitted to the hospital with chest pain and shortness of breath with exertion. He has been undergoing an outpatient workup for shortness of breath and sinus tachycardia by his field service consultant. He recently had a Holter monitor as an outpatient. He was admitted to the hospitalist service with a consultation for cardiology. His cardiac enzymes remain negative. He underwent a stress test this morning and a subsequent left heart cath this afternoon by Dr. Andres. He had no evidence of obstructive coronary disease. He was started on metoprolol 50 mg XL daily. His chest pain has resolved. His shortness of breath has improved. He is being discharged home to follow-up with his field service consultant and primary care physician as an outpatient. The patient has requested discharged late in the afternoon as he feels the bed is very uncomfortable for his low back pain. His home medications were reviewed and reconciled. This was discussed with him at length with his significant other at the bedside. - Time spent with patient Time with patient DS: Greater than 30 minutes (Total discharge time for this patient, including [id number] time, clinical documentation, medication reconciliation, and discharge planning was 45 minutes.) Diagnosis - Discharge Diagnosis (1) Chest pain Status: Acute (2) Diabetes mellitus Status: Chronic (3) Sinus tachycardia Status: Acute (4) Hypertension Status: Chronic (5) PVC (premature ventricular contraction) Status: Acute Specialty Discharge - Follow Up or Referrals Follow up with: Mingo Andres MD [Physician] - (2 weeks. Already has stress test scheduled at [facility]. Please ask patient to call and cancel stress test tomorrow since he already had one.) Discharge Plan - Discharge Data Disposition: Disch To Home/Self Care Condition at Discharge: Stable Discharge Diet: advance to your usual diet Activity: resume usual activities as tolerated Hygiene: no restrictions Weight Bearing at Discharge: full weight bearing Driving: no restrictions Contact your physician if you experience:: fever over 101, Shortness of breath, pain uncontrolled by pain medications - Discharge Medications New Escitalopram [Lexapro] 20 mg PO DAILY tablet Metoprolol Succinate Xl [Toprol Xl] 50 mg PO DAILY #30 tablet Allopurinol [Zyloprim] 300 mg PO DAILY tablet Aspirin EC Tab 81 mg PO DAILY #100 tablet Continue Omeprazole 40 mg PO DAILY Glimepiride 4 mg PO BID Tamsulosin [Flomax] 0.4 mg PO DAILY Furosemide Tab [Lasix Tab] 40 mg PO DAILY Magnesium Oxide 400 mg PO DAILY Hydrocodone/Acetaminophen [[place] 10-325 Tablet] 1 each PO QID PRN PRN Reason: Pain Glucosamine HCl 1,500 mg PO DAILY Duloxetine HCl [Cymbalta] 60 mg PO DAILY Aspirin Chew Tab 81 mg PO DAILY Cyanocobalamin (Vitamin B-12) [Vitamin B-12] 5,000 mcg PO DAILY Levothyroxine Tab [Synthroid Tab] 50 mcg PO DAILY@0700 Potassium Chloride 40 meq PO BID Pioglitazone HCl 45 mg PO DAILY Metformin HCl 1,000 mg PO BID Losartan/Hydrochlorothiazide [Losartan-Hctz 100-25 mg Tab] 1 each PO DAILY cloNIDine HCl [Clonidine HCl] 0.3 mg PO DAILY ALPRAZolam [Xanax] 2 mg PO TID PRN PRN Reason: Anxiety Methylsulfonylmethane [MSM] 1,500 mg PO DAILY - Follow Up or Referral Follow Up: Mingo Andres MD [Physician] - (2 weeks. Already has stress test scheduled at [facility]. Please ask patient to call and cancel stress test tomorrow since he already had one.) - Forms/Instructions Additional Discharge Instructions: Resume metformin on Wednesday Exam - Constitutional Vitals: Period Temp Pulse Resp BP Sys/Zeng Pulse Ox Last 24 Hr 97.4 F-99.7 F 98-108 18-20 133-164/74-86 92-97 Discharge Results Procedures and tests throughout hospitalization: Pending Orders 03/23/17 14:44 CL heart Routine Labs on day of discharge: Labs from last 24 hours 03/23/17 03/23/17 03/23/17 02:00 02:00 02:00 WBC 6.8 RBC 4.13 Hgb 10.5 L Hct 31.2 L MCV 75.5 L MCH 25 L MCHC 33.7 RDW 13.2 Plt Count 171 MPV 10.1 Neut % (Auto) 42.3 Lymph % (Auto) 44.0 [place] % (Auto) 12.4 Eos % (Auto) 0.0 Baso % (Auto) 0.6 Neut # (Auto) 2.9 Lymph # (Auto) 3.0 [place] # (Auto) 0.8 Eos # (Auto) 0.0 Baso # (Auto) 0.0 Immature Gran % 0.7 Nucleated RBC % 0.0 Immature Gran # 0.05 Nucleated RBCs # 0.00 Sodium 140 Potassium 3.6 Chloride 102 Carbon Dioxide 28 Anion Gap 13.6 BUN 18 Creatinine 0.80 GFR Calculation 140 BUN/Creatinine Ratio 22.00 H Glucose 101 POC Glucose Calculated Osmolality 280.4 Calcium 9.1 Magnesium 1.7 L Total Bilirubin 0.40 AST 30 ALT 30 Alkaline Phosphatase 91 Total Creatine Kinase CK-MB (CK-2) CK and CKMB Interp Troponin I Total Protein 6.4 Albumin 3.5 Globulin 2.9 Albumin/Globulin Ratio 1.2 Triglycerides 206 H Cholesterol 122 LDL Cholesterol 77.0 VLDL Cholesterol 41.2 HDL Cholesterol 17 L Heart Disease Risk Ratio 7.18 Free T4 1.19 TSH 3rd Generation 4.690 H 03/23/17 03/23/17 03/22/17 02:00 01:15 21:41 WBC RBC Hgb Hct MCV MCH MCHC RDW Plt Count MPV Neut % (Auto) Lymph % (Auto) [place] % (Auto) Eos % (Auto) Baso % (Auto) Neut # (Auto) Lymph # (Auto) [place] # (Auto) Eos # (Auto) Baso # (Auto) Immature Gran % Nucleated RBC % Immature Gran # Nucleated RBCs # Sodium Potassium Chloride Carbon Dioxide Anion Gap BUN Creatinine GFR Calculation BUN/Creatinine Ratio Glucose POC Glucose 127 H Calculated Osmolality Calcium Magnesium Total Bilirubin AST ALT Alkaline Phosphatase Total Creatine Kinase 279 267 CK-MB (CK-2) 5.4 H 4.9 H CK and CKMB Interp 1.9 Troponin I < 0.015 < 0.015 Total Protein Albumin Globulin Albumin/Globulin Ratio Triglycerides Cholesterol LDL Cholesterol VLDL Cholesterol HDL Cholesterol Heart Disease Risk Ratio Free T4 TSH 3rd Generation 03/22/17 18:37 WBC RBC Hgb Hct MCV MCH MCHC RDW Plt Count MPV Neut % (Auto) Lymph % (Auto) [place] % (Auto) Eos % (Auto) Baso % (Auto) Neut # (Auto) Lymph # (Auto) [place] # (Auto) Eos # (Auto) Baso # (Auto) Immature Gran % Nucleated RBC % Immature Gran # Nucleated RBCs # Sodium Potassium Chloride Carbon Dioxide Anion Gap BUN Creatinine GFR Calculation BUN/Creatinine Ratio Glucose POC Glucose Calculated Osmolality Calcium Magnesium Total Bilirubin AST ALT Alkaline Phosphatase Total Creatine Kinase CK-MB (CK-2) CK and CKMB Interp Troponin I < 0.015 Total Protein Albumin Globulin Albumin/Globulin Ratio Triglycerides Cholesterol LDL Cholesterol VLDL Cholesterol HDL Cholesterol Heart Disease Risk Ratio Free T4 TSH 3rd Generation DS: Provider Date of admission: 03/22/17 12:27 Primary care physician: . No PCP Attending physician on admission: Gabby Matta MD Consults: 03/22/17 13:45 Consult to Physician [CONS] Routine Comment: chest pain, SOB Consulting Provider: Cardiology - [facility] 03/22/17 13:47 Consult to [facility], Educator [CONS] Routine Reason for Patternator: Diabetes Education Discharging clinician: Gabby Matta MD Expected date of discharge: 03/23/17
[2017-03-23 18:26] VITALS: BP 132/86
[2017-03-23] MEDS ORDERED: LOSARTAN 50 MG TABLET PO SCH (21:00)
== END 2017-03-23 18:55 | disposition home or self-care (01) ==
LOC: N.EDINP 09:32 → N.ED 09:32 → N.EDINP 12:56 → N.TELES 13:48
PROVIDERS: ADMIT Family Medicine; ATTEND Family Medicine
PROC: CLCCHCL (ICD-10-PCS; 2017-03-23 15:45)

== ENCOUNTER 2017-07-17 13:02 | Inpatient (IN) ==
[2017-07-17] MEDS ORDERED: HYDROmorphone 2 MG/1 ML VIAL IV STA (16:31)
[2017-07-17] MEDS ORDERED: ONDANSETRON 4 MG/2 ML VIAL IV STA (16:32)
[2017-07-17] MEDS ORDERED: HYDROmorphone 2 MG/1 ML VIAL ONE (16:34)
[2017-07-17] MEDS ORDERED: ONDANSETRON 4 MG/2 ML VIAL ONE (16:34)
--- NOTE | 2017-07-17 16:37 | Emergency Department Note ---
IMaria Eugenia Mantricia, am scribing for, and in the presence of, Adalid Herron MD 16:17. IGopal Dwight, MD, personally performed the services described in this documentation, ascribed by Cheyenne Del Cid in my presence, and it is both accurate and complete [phone] . Arrival - Arrival Chief Complaint: Eye Stated Complaint: BLISTER IN EYE ED Nursing Triage Note: reports left eye has been bothering him since last night. woke up this morning with conjuctival edema. has seen dr lara for vision changes this past week. pt has a hx of chemo and recently told that cancer was in his spinal column. Mode of Arrival: Ambulatory Limitations: No Limitations Source: Patient, Significant other - History of Present Illness HPI Narrative: Pt is a 56 y/o white male ambulating to ED with c/o right conjuctival edema that onset last night. 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 Clarke. He states that he was given a booster shot 2 weeks ago due to generalized weakness. Pt also has a PMHx of [place] Palsy. He states that he had a spinal tap performed on Wednesday and a blood patch on Wednesday. Pt was seen in ED on 07/05/[address] 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 Pt also c/o headache since yesterday. No other complaints were reported to ED. Onset (ago): hour(s) Consistency: constant Severity: moderate Allergies/Adverse Reactions: Allergies Allergy/AdvReac Type Severity Reaction Status Date / Time Penicillins Allergy Unknown/Unable Verified 07/14/17 14:28 to obtain silver Allergy BLISTER Verified 07/17/17 13:20 [From Tegaderm AG Mesh] diazepam [From Valium] AdvReac Confusion Verified 07/14/17 14:28 fluoxetine [From Prozac] AdvReac Agitated Verified 07/14/17 14:28 Tetanus Vaccines and Toxoid AdvReac Fatigued Verified 07/14/17 14:28 tegaderm Allergy BLISTER Uncoded 07/17/17 13:21 Home Medications: Home Medications Medication Instructions Recorded Confirmed Type ALPRAZolam [Xanax] 2 mg PO TID PRN 03/22/17 07/14/17 History Furosemide Tab [Lasix Tab] 40 mg PO QAM 03/22/17 07/14/17 History Glimepiride 4 mg PO BID 03/22/17 07/14/17 History Levothyroxine Tab [Synthroid Tab] 50 mcg PO DAILY@0700 03/22/17 07/14/17 History Metformin HCl 1,000 mg PO BID 03/22/17 07/14/17 History Omeprazole 40 mg PO QAM 03/22/17 07/14/17 History Pioglitazone HCl 45 mg PO QAM 03/22/17 07/14/17 History Potassium Chloride 40 meq PO BID 03/22/17 07/14/17 History Tamsulosin [Flomax] 0.4 mg PO QAM 03/22/17 07/14/17 History cloNIDine HCl [Clonidine HCl] 0.3 mg PO QAM 03/22/17 07/14/17 History Allopurinol [Zyloprim] 300 mg PO QAM 05/07/17 07/14/17 History Ferrous Sulfate [Iron] 325 mg PO BID 05/07/17 07/14/17 History Hydrocodone/Acetaminophen [[place] 1 each PO Q4HR PRN 05/07/17 07/14/17 History 10-325 Tablet] Magnesium Oxide [Magnesium] 400 mg PO QAM 05/07/17 07/14/17 History valACYclovir [Valtrex] 1,000 mg PO TID #30 tablet 07/05/17 07/14/17 Rx Acetaminophen with Codeine 1 each PO QAM 07/14/17 07/14/17 History [Acetaminophen-Cod #4 Tablet] Duloxetine HCl [Duloxetine] 60 mg PO QAM 07/14/17 07/14/17 History Losartan [Cozaar] 50 mg PO QAM 07/14/17 07/14/17 History Meloxicam [Meloxicam] 15 mg PO QAM 07/14/17 07/14/17 History Tizanidine HCl [Tizanidine HCl] 4 mg PO TID PRN 07/14/17 07/14/17 History Review of System - Review of System 12 point system: reviewed and no additional remarkable complaints except as stated - Review of System Constitutional: Absent: chills, diaphoresis, fever Eyes: Present: discharge, redness, vision change, other (right conjuctival edema ) Gastrointestinal: Absent: abdominal pain, nausea, vomiting, diarrhea Musculoskeletal: Absent: arm pain, back pain, leg pain, neck pain Neurological: Present: headache. Absent: weakness Medical,Surgical,& Family Hx - Medical History Cardio: History of: Cardiac Dysrhythmia, Hypertension Psychological: History of: Psychiatric Problems (ptsd) Neurology: No history of: Seizures Endocrine: History of: Diabetes Mellitus (IDDM), Diabetes Mellitus (NIDDM), Dyslipidemia, Thyroid Disorder Gastrointestinal: History of: GERD Other: History of: Miscellaneous Medical Problems (Mantal cell lymphoma Dr Clarke) - Surgical History HEENT Surgeries: Surgical HX of: Tonsilectomy & Adenoidectomy - Family History Family History: Reports;: Family Cancer (Other), Family Diabetes (Mother), Family Heart Disease (Half-brother), Family Hypertension, Family Stroke (Father) - Social History Smoking Status: Former smoker Exam Vital Signs: Vital Signs Temperature 98.1 F 07/17/17 13:13 Pulse Rate 82 07/17/17 16:10 Respiratory Rate 18 07/17/17 16:10 Blood Pressure 150/86 07/17/17 16:10 O2 Sat by Pulse Oximetry 98 07/17/17 15:10 - General General appearance: alert, in no apparent distress - Head Head exam: Present: atraumatic, normocephalic - Eye Eye exam: Present: PERRL, EOMI, other (right conjuctival edema with drainage) - ENT ENT exam: Present: normal exam - Neck Neck exam: Present: normal inspection - Chest Chest inspection: Present: normal inspection - Respiratory Respiratory exam: Present: normal lung sounds bilaterally - Abdominal Exam Abdominal exam: Present: soft. Absent: distention, tenderness, guarding, rebound - Extremities Exam Extremities exam: Present: normal inspection - Back Exam Back exam: Present: normal inspection - Neurological Exam Neurological exam: Present: alert, oriented X3, CN II-XII intact - Psychiatric Psychiatric exam: Present: normal affect, normal mood - Skin Skin exam: Present: warm, dry, intact, normal color Results - Labs CBC & BMP: 07/17/17 16:13 07/17/17 16:13 Lab Results: I have reviewed the patients labs Labs: Laboratory Tests 07/17/17 07/17/17 07/17/17 16:13 16:13 16:13 RBC 3.21 L Hgb 8.4 L Hct 26.7 L MCV 83.2 L MCH 26 L MCHC 31.5 L RDW 20.0 H Plt Count 102 L Neut % (Auto) 74.5 H Lymph % (Auto) 14.1 L Lymph # (Auto) 0.9 L Lymphocytes 14 L Creatinine 0.50 L BUN/Creatinine Ratio 28.00 H Glucose 123 H Calcium 8.3 L ALT 13 L C-Reactive Protein 8.02 H Total Protein 6.1 L Albumin 3.2 L - Diagnostic Findings Procedure: CT: report reviewed by me (Head: Previous lacuna infarct right caudate head which may be subacute. Mild bilateral proptosis of uncertain etiology, left slightly more prominent than right. Face: Mild proptosis bilaterally, unchanged in retrospect from the June 28, 2017 MRI.)
[2017-07-17 16:40] LABS: Hematocrit 26.7 VOL% (42.0-52.0); Hemoglobin 8.4 GM/DL (14.0-18.0); Mean Corpuscular Volume 83.2 FL (87-102); Red Blood Count 3.21 MC/CUMM (3.8-5.5); White Blood Count 6.4 T/CUMM (4-12)
[2017-07-17 16:41] LABS: Basophils % 0.3 % (0.0-0.8); Immature Granulocytes % 0.9 %; Immature Granulocytes Absolute 0.06 #; Lymphocytes # 0.9 10*3/uL (1.4-4.0); Lymphocytes % 14.1 % (21.2-54.2); Mean Corpuscular HGB Conc 31.5 GM/DL (32-36); Mean Corpuscular Hemoglobin 26 PG (27-34); Mean Platelet Volume 9.8 FL (9.6-12.0); Monocytes # 0.7 10*3/uL (0.11-0.8); Monocytes % 10.2 % (1.7-12.7); Neutrophils # 4.8 10*3/uL (1.4-7.4); Neutrophils % 74.5 % (38.7-73.9)
[2017-07-17 16:47] LABS: Platelet Count 102 T/CUMM (130-400)
[2017-07-17 16:59] LABS: Eosinophils 1 % (0-10); Hypochromasia 1+; Lymphocytes 14 % (20-55); Microcytosis Slight; Ovalocytes Slight; Platelet Estimate Decreased; Segmented Neutrophils 76 % (50-85); Total Cells Counted 100
[2017-07-17 17:00] LABS: Albumin 3.2 G/DL (3.4-5.0); Bilirubin,Total 0.4 MG/DL (0.2-1.0); Calcium 8.3 MG/DL (8.5-10.1); Total Protein 6.1 G/DL (6.4-8.3)
[2017-07-17] MEDS ORDERED: methylPREDNISolone SOD SUC 125 MG/2 ML VIAL IV STA (17:24)
--- NOTE | 2017-07-17 18:16 | CT Report ---
History: Left eye proptosis. History of lymphoma Date: 07/17/2017 Study: CT head with and without IV contrast Comparison exam: September 06, [address] sections were obtained through the brain with and without 80 mL Omnipaque 350 IV contrast. The ventricles are midline in position without evidence of hydrocephalus. There is no mass or area of parenchymal hemorrhage. There is no gross CT evidence of acute cortical stroke. There is no abnormal brain parenchymal postcontrast enhancement. There is evidence of previous lacunar infarction involving the right caudate head. There is mild proptosis bilaterally of uncertain etiology. There is no extra-axial hematoma. The sinuses are generally clear. There is no obvious skull fracture. Impression: Previous lacunar infarct right caudate head which may be subacute. Mild bilateral proptosis of uncertain etiology, left slightly more prominent than right This CT exam was performed using one or more the following dose reduction techniques: Automated exposure control, adjustment of the MA and/or KV according to patient size, or use of iterative reconstruction technique. PROCEDURE INTERPRETED AT [facility] DEPARTMENT OF RADIOLOGY Final Report Signed by: Dr. Janiya Morales
--- NOTE | 2017-07-17 18:55 | CT Report ---
History: Left proptosis. Lymphoma Date: 07/17/2017 Study: CT face without IV contrast Comparison exam: No previous similar Thin spiral CT sections were obtained through the face with 80 mL Omnipaque 350 IV contrast. Multiplanar reconstruction images are also evaluated. This CT exam was performed using one or more the following dose reduction techniques: Automated exposure control, adjustment of the MA and/or KV according to patient size, or use of iterative reconstruction technique. There is nonspecific mild proptosis bilaterally, left slightly more prominent than right. There is no abnormal orbital mass or abnormal enhancement. There is no abnormal retrobulbar mass. The extraocular muscles are fairly symmetric in appearance. There is no obvious inflammatory change in the retrobulbar fat. There is mild mucosal thickening in the left maxillary sinus. The sinuses are otherwise clear. Impression: Mild proptosis bilaterally, unchanged in retrospect from the June 28, 2017 MRI. Mild left maxillary sinus disease which may be chronic or allergic PROCEDURE INTERPRETED AT [facility] DEPARTMENT OF RADIOLOGY Final Report Signed by: Dr. Janiya Morales
[2017-07-17] MEDS ORDERED: MEROPENEM 1,000 MG in SODIUM CHLORIDE 0.9% 100 ML IV STA (19:55)
[2017-07-17] MEDS ORDERED: prednisoLONE ACETATE 1% OPH SUSP 5 ML BOTTLE LEFT EYE STA (19:56)
[2017-07-17] MEDS ORDERED: ACYCLOVIR INJ 1,250 MG in SODIUM CHLORIDE 0.9% 250 ML IV SCH ×2 (20:00→20:30)
[2017-07-17] MEDS ORDERED: traMADol 50 MG TABLET PO PRN ×2 (20:10→23:31)
[2017-07-17] MEDS ORDERED: LOPERAMIDE 2 MG CAPSULE PO PRN ×4 (20:10→23:31)
[2017-07-17] MEDS ORDERED: PROMETHAZINE INJ 25 MG in SODIUM CHLORIDE 0.9% 50 ML IV PRN (20:10)
[2017-07-17] MEDS ORDERED: chlorproMAZINE INJ 50 MG in SODIUM CHLORIDE 0.9% 100 ML IV PRN ×2 (20:10→23:31)
[2017-07-17] MEDS ORDERED: guaiFENesin 200 MG/10 ML UDCUP PO PRN ×2 (20:10→23:31)
[2017-07-17] MEDS ORDERED: MAGNESIUM HYDROXIDE SUSP 30 ML UDCUP PO PRN ×2 (20:10→23:31)
[2017-07-17] MEDS ORDERED: ONDANSETRON 4 MG/2 ML VIAL IV PRN (20:10)
[2017-07-17] MEDS ORDERED: LACTULOSE 20 GM/30 ML UDCUP PO PRN ×2 (20:10→23:31)
[2017-07-17] MEDS ORDERED: TEMAZEPAM 7.5 MG CAPSULE PO PRN (20:10)
[2017-07-17] MEDS ORDERED: ACETAMINOPHEN 325 MG TABLET PO PRN ×2 (20:10→23:31)
[2017-07-17] MEDS ORDERED: chlorproMAZINE INJ 25 MG in SODIUM CHLORIDE 0.9% 100 ML IV PRN ×2 (20:10→23:31)
[2017-07-17] MEDS ORDERED: ALPRAZolam 0.25 MG TABLET PO PRN (20:10)
[2017-07-17] MEDS ORDERED: BENZTROPINE 2 MG/2 ML AMP IV PRN ×2 (20:10→23:31)
[2017-07-17] MEDS ORDERED: ALUMINUM/MAGNES/SIMETH MAX STR 30 ML UDCUP PO PRN ×2 (20:10→23:31)
[2017-07-17] MEDS ORDERED: MYLANTA/LIDO VISC 2:1 300 ML BOTTLE SWISH/SWAL PRN ×2 (20:10→23:31)
[2017-07-17] MEDS ORDERED: chlorproMAZINE 25 MG TABLET PO PRN ×2 (20:10→23:31)
[2017-07-17] MEDS ORDERED: MYLANTA/LIDO VISC 2:1 300 ML BOTTLE SWISH/SPIT PRN ×2 (20:10→23:31)
[2017-07-17] MEDS ORDERED: diphenhydrAMINE CAP 25 MG CAPSULE PO PRN ×2 (20:10→23:31)
[2017-07-17] MEDS ORDERED: tiZANidine 4 MG TABLET PO PRN (20:19)
[2017-07-17] MEDS ORDERED: ALPRAZOLAM 2 MG PO PRN (20:19)
[2017-07-17] MEDS ORDERED: SODIUM CHLORIDE 0.9% 1,000 ML IV SCH ×2 (20:30→23:30)
[2017-07-17] MEDS ORDERED: metFORMIN 500 MG TABLET PO SCH (21:00)
[2017-07-17] MEDS ORDERED: GLIMEPIRIDE 4 MG TABLET PO SCH (21:00)
[2017-07-17] MEDS ORDERED: FERROUS SULFATE 325 MG TABLET PO SCH (21:00)
[2017-07-17] MEDS ORDERED: POTASSIUM CHLORIDE 20 MEQ TABLET PO SCH (21:00)
[2017-07-17 21:34] LABS: Basophils % 0.3 % (0.0-0.8); Hematocrit 28.3 VOL% (42.0-52.0); Hemoglobin 8.9 GM/DL (14.0-18.0); Immature Granulocytes % 1.1 %; Immature Granulocytes Absolute 0.08 #; Lymphocytes # 0.8 10*3/uL (1.4-4.0); Lymphocytes % 11.3 % (21.2-54.2); Mean Corpuscular HGB Conc 31.4 GM/DL (32-36); Mean Corpuscular Hemoglobin 26 PG (27-34); Monocytes # 0.3 10*3/uL (0.11-0.8); Monocytes % 4.6 % (1.7-12.7); Neutrophils # 5.9 10*3/uL (1.4-7.4); Neutrophils % 82.7 % (38.7-73.9); Platelet Count 121 T/CUMM (130-400); Red Blood Count 3.41 MC/CUMM (3.8-5.5); Red Cell Distribution Width 20.2 % (9.3-17.3); White Blood Count 7.1 T/CUMM (4-12)
[2017-07-17 21:51] LABS: Albumin 3.3 G/DL (3.4-5.0); Bilirubin,Total 0.5 MG/DL (0.2-1.0); Calcium 8.3 MG/DL (8.5-10.1); Magnesium 2.1 MG/DL (1.8-2.4); Potassium 4.7 MMOL/L (3.5-5.1); Total Protein 6.4 G/DL (6.4-8.3); Uric Acid 4.9 MG/DL (3.5-7.2)
[2017-07-17] MEDS ORDERED: INFLUENZA VIRUS VACCINE 0.5 ML SYRINGE IM ONE (22:42)
[2017-07-18 00:16] LABS: Anisocytosis 1+; Band Neutrophils 1 % (0-10); Lymphocytes 11 % (20-55); Platelet Estimate Adequate; Segmented Neutrophils 84 % (50-85); Spherocytes Few; Tear Drop Cells Few; Total Cells Counted 100
[2017-07-18] MEDS: oxyCODONE/ACETAMINOPHEN 5-325 MG TABLET PO PRN ×3 (00:45→20:20)
[2017-07-18] MEDS: ONDANSETRON 4 MG/2 ML VIAL IV PRN ×2 (00:55→10:17)
[2017-07-18] MEDS: ACYCLOVIR INJ 1,250 MG in SODIUM CHLORIDE 0.9% 250 ML IV SCH ×3 (00:55→20:19)
[2017-07-18] MEDS: GABAPENTIN 100 MG CAPSULE PO SCH ×3 (01:15→20:19)
[2017-07-18] MEDS: MEROPENEM 1,000 MG in SODIUM CHLORIDE 0.9% 50 ML IV SCH ×3 (02:39→17:52)
[2017-07-18] MEDS: LEVOTHYROXINE 50 MCG TABLET PO SCH (06:17)
[2017-07-18 06:47] LABS: Basophils % 0.3 % (0.0-0.8); Hemoglobin 8.9 GM/DL (14.0-18.0); Immature Granulocytes % 1.9 %; Immature Granulocytes Absolute 0.14 #; Lymphocytes # 0.9 10*3/uL (1.4-4.0); Lymphocytes % 12.9 % (21.2-54.2); Mean Corpuscular HGB Conc 31.8 GM/DL (32-36); Mean Corpuscular Hemoglobin 26 PG (27-34); Mean Corpuscular Volume 82.8 FL (87-102); Mean Platelet Volume 10.6 FL (9.6-12.0); Monocytes # 0.3 10*3/uL (0.11-0.8); Monocytes % 3.7 % (1.7-12.7); Neutrophils # 5.9 10*3/uL (1.4-7.4); Neutrophils % 81.2 % (38.7-73.9); Platelet Count 139 T/CUMM (130-400); Red Blood Count 3.38 MC/CUMM (3.8-5.5); White Blood Count 7.3 T/CUMM (4-12)
[2017-07-18] MEDS ORDERED: LEVOTHYROXINE 50 MCG TABLET PO SCH (07:00)
[2017-07-18 07:25] LABS: Albumin 3.1 G/DL (3.4-5.0); Bilirubin,Total 0.6 MG/DL (0.2-1.0); Calcium 8.3 MG/DL (8.5-10.1); Magnesium 2.5 MG/DL (1.8-2.4); Osmolality,Calculated 279.8 MOS/KG (273-304); Potassium 4.4 MMOL/L (3.5-5.1); Total Protein 6.1 G/DL (6.4-8.3); Uric Acid 5.1 MG/DL (3.5-7.2)
[2017-07-18 07:35] LABS: Lymphocytes 16 % (20-55); Platelet Estimate Normal; Segmented Neutrophils 77 % (50-85); Total Cells Counted 100
[2017-07-18 07:36] LABS: Giant Platelets Few; Hypochromasia 1+; Microcytosis Slight; Ovalocytes Slight
[2017-07-18] MEDS ORDERED: MEROPENEM 1,000 MG in SODIUM CHLORIDE 0.9% 100 ML IV SCH (08:00)
--- NOTE | 2017-07-18 08:54 | Oncology Progress Note ---
Oncology Subjective PN Interval history: Patient seen and examined and case reviewed overnight with Dr. Adalid De Oliveira in the emergency room. 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 He has received what appears to be CHOP and Velcade regimen is front- line treatment with progression seen on PET scan. He also has left proptosis and vision loss totally now on the left. His right-sided vision is decreased. He seen Dr. Garcia for this as well as a specialist in [place]. I feel this is likely lymphoma related especially given this weeks finding of positive CSF cytology. Hyper CVAT inpatient chemotherapy has been discussed with the patient earlier in the week with Dr. Lyn though the patient seems disinclined at the present time. He is on antiviral and antimicrobial coverage at the present time. We will place a patch on the left eye. I have discussed an MRI with him today to evaluate for venous thrombosis among other diagnoses. I am not going to order this and will defer this to his attending. Plans for today are primarily pain control. He does have some headache. He was given steroids 1 in the emergency department. Exam - Constitutional Vitals: Period Temp Pulse Resp BP Sys/Zeng Pulse Ox Last 24 Hr 96.9 F-99.1 F 76-101 16-20 116-150/62-91 96-98 Results - Labs CBC & BMP: 07/18/17 04:00 07/18/17 04:00 Quality Measures - VTE Contraindication to Pharmacological VTE Prophylaxis: Coagulopathy
[2017-07-18] MEDS ORDERED: ALLOPURINOL 300 MG TABLET PO SCH (09:00)
[2017-07-18] MEDS ORDERED: DULoxetine 30 MG CAPSULE PO SCH (09:00)
[2017-07-18] MEDS ORDERED: ACETAMINOPHEN WITH CODEINE PO SCH (09:00)
[2017-07-18] MEDS ORDERED: LOSARTAN 50 MG TABLET PO SCH (09:00)
[2017-07-18] MEDS ORDERED: FUROSEMIDE 40 MG TABLET PO SCH (09:00)
[2017-07-18] MEDS ORDERED: MELOXICAM 7.5 MG TABLET PO SCH (09:00)
[2017-07-18] MEDS ORDERED: [UNRECOGNIZED DRUG - OTHER] PO SCH (09:00)
[2017-07-18] MEDS ORDERED: TAMSULOSIN 0.4 MG CAPSULE PO SCH (09:00)
[2017-07-18] MEDS ORDERED: MAGNESIUM OXIDE 400 MG TABLET PO SCH (09:00)
[2017-07-18] MEDS ORDERED: PANTOPRAZOLE 40 MG TABLET PO SCH (09:00)
[2017-07-18] MEDS ORDERED: PIOGLITAZONE 45 MG TABLET PO SCH (09:00)
[2017-07-18] MEDS ORDERED: HYDROmorphone 2 MG/1 ML VIAL ONE (10:00)
[2017-07-18] MEDS: HYDROmorphone 2 MG/1 ML VIAL IV PRN ×2 (10:07→14:00)
[2017-07-18] MEDS: PROMETHAZINE INJ 25 MG in SODIUM CHLORIDE 0.9% 50 ML IV PRN (13:12)
[2017-07-18] MEDS: ALLOPURINOL 300 MG TABLET PO SCH (13:20)
[2017-07-18] MEDS: ALPRAZolam 0.5 MG TABLET PO SCH ×3 (13:20→21:07)
[2017-07-18] MEDS: MAGNESIUM OXIDE 400 MG TABLET PO SCH (13:21)
[2017-07-18] MEDS: MELOXICAM 7.5 MG TABLET PO SCH (13:21)
[2017-07-18] MEDS: POTASSIUM CHLORIDE 20 MEQ TABLET PO SCH ×2 (13:22→20:19)
[2017-07-18] MEDS: FUROSEMIDE 40 MG TABLET PO SCH (13:22)
[2017-07-18] MEDS: TAMSULOSIN 0.4 MG CAPSULE PO SCH (13:23)
[2017-07-18] MEDS: DULoxetine 30 MG CAPSULE PO SCH (13:23)
[2017-07-18] MEDS: MINERAL OIL/PETROLATUM OPH OINT 3.5 GM TUBE LEFT EYE SCH ×2 (14:04→21:09)
[2017-07-18] MEDS: LOSARTAN 50 MG TABLET PO SCH (14:11)
[2017-07-18] MEDS: predniSONE 20 MG TABLET PO SCH (14:11)
[2017-07-18] MEDS: PIOGLITAZONE 45 MG TABLET PO SCH (14:12)
[2017-07-18] MEDS: metFORMIN 500 MG TABLET PO SCH ×2 (14:12→18:05)
[2017-07-19] MEDS: MEROPENEM 1,000 MG in SODIUM CHLORIDE 0.9% 50 ML IV SCH ×2 (01:08→10:31)
[2017-07-19] MEDS: HYDROmorphone 2 MG/1 ML VIAL IV PRN ×2 (01:24→07:20)
[2017-07-19] MEDS: ONDANSETRON 4 MG/2 ML VIAL IV PRN (01:27)
[2017-07-19] MEDS: oxyCODONE/ACETAMINOPHEN 5-325 MG TABLET PO PRN (02:43)
[2017-07-19] MEDS: PROMETHAZINE INJ 25 MG in SODIUM CHLORIDE 0.9% 50 ML IV PRN (04:06)
[2017-07-19] MEDS: ACYCLOVIR INJ 1,250 MG in SODIUM CHLORIDE 0.9% 250 ML IV SCH (04:42)
[2017-07-19] MEDS: LEVOTHYROXINE 50 MCG TABLET PO SCH (07:20)
--- NOTE | 2017-07-19 07:50 | Oncology History&Physical ---
Assessment and Plan - Time spent with patient Time spent with patient: Greater than 30 minutes (1) Lymphoma Status: Acute Assessment and plan: I had a lengthy discussion with Mr. Bansal this morning. I agree with Dr. Womack that his current eye situation is most likely related to GRAPHIC ARTIST involvement. I do not think there is any harm with covering him with antivirals and prednisone. He is requesting to go home since we are basically providing comfort care only at this point. He has not decided yet if he wants home hospice or not. He needs to go home this morning so that his can go to work. He is very concerned about her business and making sure she does not miss much of her work especially since he anticipates that he will not survive more than a few weeks. Given the circumstances, I have agreed to discharge him home. I will send him home with Dilaudid for pain control. Also send him home with Valtrex and prednisone. I do not anticipate that he will survive more than 2-3 months at best. Current Visit: Yes (2) GRAPHIC ARTIST lymphoma Status: Acute Current Visit: Yes (3) Headache Status: Acute Current Visit: Yes (4) Beasley palsy Status: Acute Current Visit: Yes History of Present Illness History of present illness: Mr. 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 He is having significant vision problems from his GRAPHIC ARTIST involvement. He presented to the emergency room this weekend with worsening left eye ptosis and swelling. There is also some conjunctival bulging. He was admitted for antiviral therapy. He was placed on IV acyclovir and meropenem. He denies any fever chills or night sweats. He is still adamant that he does not want any further treatment for his lymphoma. His recent CT scan showed that his peripheral lymph nodes are not responding to chemotherapy. Home Medications Medication Instructions Recorded Confirmed Type ALPRAZolam [Xanax] 2 mg PO TID PRN 03/22/17 07/17/17 History Furosemide Tab [Lasix Tab] 40 mg PO QAM 03/22/17 07/17/17 History Glimepiride 4 mg PO BID 03/22/17 07/17/17 History Levothyroxine Tab [Synthroid Tab] 50 mcg PO DAILY@0700 03/22/17 07/17/17 History Metformin HCl 1,000 mg PO BID 03/22/17 07/17/17 History Omeprazole 40 mg PO QAM 03/22/17 07/17/17 History Pioglitazone HCl 45 mg PO QAM 03/22/17 07/17/17 History Potassium Chloride 40 meq PO BID 03/22/17 07/17/17 History Tamsulosin [Flomax] 0.4 mg PO QAM 03/22/17 07/17/17 History cloNIDine HCl [Clonidine HCl] 0.3 mg PO QAM 03/22/17 07/17/17 History Allopurinol [Zyloprim] 300 mg PO QAM 05/07/17 07/17/17 History Ferrous Sulfate [Iron] 325 mg PO BID 05/07/17 07/17/17 History Hydrocodone/Acetaminophen [[place] 10 each PO Q4HR PRN 05/07/17 07/17/17 History 10-325 Tablet] Magnesium Oxide [Magnesium] 400 mg PO QAM 05/07/17 07/17/17 History valACYclovir [Valtrex] 1,000 mg PO TID #30 tablet 07/05/17 07/17/17 Rx Acetaminophen with Codeine 1 each PO QAM 07/14/17 07/17/17 History [Acetaminophen-Cod #4 Tablet] Duloxetine HCl [Duloxetine] 60 mg PO QAM 07/14/17 07/17/17 History Losartan [Cozaar] 50 mg PO QAM 07/14/17 07/17/17 History Meloxicam [Meloxicam] 15 mg PO QAM 07/14/17 07/17/17 History Tizanidine HCl [Tizanidine HCl] 4 mg PO TID PRN 07/14/17 07/17/17 History Gabapentin 100 mg PO BID 07/17/17 07/17/17 History Oxycodone HCl/Acetaminophen 1 each PO Q4HR PRN 07/17/17 07/17/17 History [Percocet 10-325 mg Tablet] Prochlorperazine Tab [Compazine 10 mg PO Q6HR PRN 07/17/17 07/17/17 History Tab] predniSONE TAB [PredniSONE] 20 mg PO DAILY 07/17/17 07/17/17 History Allergies Allergy/AdvReac Type Severity Reaction Status Date / Time Penicillins Allergy Unknown/Unable Verified 07/14/17 14:28 to obtain silver Allergy BLISTER Verified 07/17/17 13:20 [From Tegaderm AG Mesh] diazepam [From Valium] AdvReac Confusion Verified 07/14/17 14:28 fluoxetine [From Prozac] AdvReac Agitated Verified 07/14/17 14:28 Tetanus Vaccines and Toxoid AdvReac Fatigued Verified 07/14/17 14:28 tegaderm Allergy BLISTER Uncoded 07/17/17 13:21 Medical,Surgical,& Family Hx - Medical History Cardio: History of: Cardiac Dysrhythmia, Hypertension Psychological: History of: Psychiatric Problems (ptsd) Neurology: No history of: Seizures HEENT: History of: Eye Problem (conjunctiva edema) Endocrine: History of: Diabetes Mellitus (IDDM), Diabetes Mellitus (NIDDM), Dyslipidemia, Thyroid Disorder Rheumatology: History of;: Rheumatoid Arthritis Gastrointestinal: History of: GERD Musculoskeletal: History of: Back/Neck Problems (cancer in spinal column) Other: History of: Miscellaneous Medical Problems (Mantal cell lymphoma Dr Clarke) - Surgical History HEENT Surgeries: Surgical HX of: Tonsilectomy & Adenoidectomy - Family History Family History: Reports;: Family Cancer (Other), Family Diabetes (Mother), Family Heart Disease (Half-brother), Family Hypertension, Family Stroke (Father) - Social History Smoking Status: Former smoker 12 point system: reviewed and no additional remarkable complaints except as stated - Constitutional Constitutional: Present: fatigue - EENT Eye: Present: blurry vision, diplopia, loss of vision Nose, mouth and throat: Present: dizziness - Neurological Neurological ROS: Present: headache(s) Exam - Constitutional Vitals: Period Temp Pulse Resp BP Sys/Zeng Pulse Ox Last 24 Hr 96.2 F-98.3 F 71-101 16-20 101-158/52-78 95-98 General appearance: normal weight, no acute distress - Head Head Exam: Present: normocephalic, atraumatic - Eye Eye Exam: Present: conjunctival injection, periorbital swelling - ENT ENT exam: Present: normal exam, normal oropharynx - Neck Neck exam: Absent: lymphadenopathy, thyromegaly - Respiratory Respiratory exam: Present: CTAB. Absent: wheezes - Cardiovascular Cardiovascular exam: Present: RRR. Absent: JVD, systolic murmur - GI/Abdominal GI/Abdominal exam: Present: soft. Absent: ascites, distended, firm, mass - Neurological Exam Neurological exam: Present: alert, oriented X3 - Psychiatric Psychiatric exam: Present: normal affect, normal mood - Skin Skin exam: Present: warm, dry Results - Labs CBC & BMP: 07/18/17 04:00 07/18/17 04:00 Lab Results: I have reviewed the past 24 hour labs Quality Measures - VTE Contraindication to Pharmacological VTE Prophylaxis: Coagulopathy
--- NOTE | 2017-07-19 07:57 | Discharge Summary ---
Hospital Course - Hospital Course Hospital Course: Mr. 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 He was admitted with left eye swelling. This is most likely secondary to lymphoma involvement that seems to be fairly rapidly progressing. He has chosen not do any further chemotherapy given the unlikelihood that it will be effective. He does not want to even consider a stem cell transplant at a tertiary facility. He is adamant that he needs to go home this morning so that his can go to works we will discharge him home. I told him to strongly be considering home hospice so that we can have this arranged form in the near future. He states he would like to continue to talk things over this family before any final decisions are made about his long-term care. I will send him home with prednisone and Valtrex. We will also send him home with a prescription for Dilaudid. If ophthalmology is available to evaluate his eye this morning, we will asked them to see him before he leaves. However, given such short notice, I am uncertain if they will have the opportunity to see him. This is not a big deal at all given that we are basically providing comfort measures and I do not think it is a reversible process that is going on. - Time spent with patient Time with patient DS: Greater than 30 minutes Diagnosis - Discharge Diagnosis (1) Lymphoma Status: Acute (2) COMMUNITY RESOURCE OFFICER lymphoma Status: Acute (3) Headache Status: Acute (4) Beasley palsy Status: Acute Discharge Plan - Discharge Data Disposition: Disch To Home/Self Care Condition at Discharge: Guarded Discharge Diet: advance to your usual diet - Discharge Medications New HYDROmorphone TAB [Dilaudid Tab] 2 - 4 mg PO Q4H PRN #60 tablet PRN Reason: Pain Continue Omeprazole 40 mg PO QAM Glimepiride 4 mg PO BID Tamsulosin [Flomax] 0.4 mg PO QAM Furosemide Tab [Lasix Tab] 40 mg PO QAM Levothyroxine Tab [Synthroid Tab] 50 mcg PO DAILY@0700 Hydrocodone/Acetaminophen [[place] 10-325 Tablet] 10 each PO Q4HR PRN PRN Reason: Pain Allopurinol [Zyloprim] 300 mg PO QAM Magnesium Oxide [Magnesium] 400 mg PO QAM Acetaminophen with Codeine [Acetaminophen-Cod #4 Tablet] 1 each PO QAM Duloxetine HCl [Duloxetine] 60 mg PO QAM Losartan [Cozaar] 50 mg PO QAM Tizanidine HCl 4 mg PO TID PRN PRN Reason: MUSCLE SPASMS Prochlorperazine Tab [Compazine Tab] 10 mg PO Q6HR PRN PRN Reason: Nausea Oxycodone HCl/Acetaminophen [Percocet 10-325 mg Tablet] 1 each PO Q4HR PRN PRN Reason: Pain Gabapentin 100 mg PO BID Potassium Chloride 40 meq PO BID Pioglitazone HCl 45 mg PO QAM Metformin HCl 1,000 mg PO BID cloNIDine HCl [Clonidine HCl] 0.3 mg PO QAM ALPRAZolam [Xanax] 2 mg PO TID PRN PRN Reason: Anxiety Meloxicam 15 mg PO QAM valACYclovir [Valtrex] 1,000 mg PO TID #30 tablet Changed predniSONE TAB [PredniSONE] 40 mg PO DAILY #12 Discontinued Ferrous Sulfate [Iron] 325 mg PO BID - Follow Up or Referral - Forms/Instructions Exam - Constitutional Vitals: Period Temp Pulse Resp BP Sys/Zeng Pulse Ox Last 24 Hr 96.2 F-98.3 F 71-101 16-20 101-158/52-78 95-98 Discharge Results Procedures and tests throughout hospitalization: Pending Orders 07/17/17 20:10 Urinalysis Routine DS: Provider Date of admission: 07/17/17 20:49 Primary care physician: Jeremi Paul, Attending physician on admission: José Clarke MD Consults: 07/17/17 22:38 Consult to Dietitian [CONS] Routine Reason for Dietitian: Dietary Consult Discharging clinician: José Clarke MD
[2017-07-19] MEDS ORDERED: HEPARIN LOCK FLUSH 500 UNIT/5 ML SYRINGE IV PRN (08:29)
[2017-07-19] MEDS: MELOXICAM 7.5 MG TABLET PO SCH (09:19)
[2017-07-19] MEDS: FUROSEMIDE 40 MG TABLET PO SCH (09:19)
[2017-07-19] MEDS: metFORMIN 500 MG TABLET PO SCH (09:20)
[2017-07-19] MEDS: DULoxetine 30 MG CAPSULE PO SCH (09:20)
[2017-07-19] MEDS: GABAPENTIN 100 MG CAPSULE PO SCH (09:20)
[2017-07-19] MEDS: PIOGLITAZONE 45 MG TABLET PO SCH (09:20)
[2017-07-19] MEDS: MAGNESIUM OXIDE 400 MG TABLET PO SCH (09:21)
[2017-07-19] MEDS: LOSARTAN 50 MG TABLET PO SCH (09:21)
[2017-07-19] MEDS: ALPRAZolam 0.5 MG TABLET PO SCH (09:21)
[2017-07-19] MEDS: TAMSULOSIN 0.4 MG CAPSULE PO SCH (09:21)
[2017-07-19] MEDS: POTASSIUM CHLORIDE 20 MEQ TABLET PO SCH (09:21)
[2017-07-19] MEDS: MINERAL OIL/PETROLATUM OPH OINT 3.5 GM TUBE LEFT EYE SCH (09:22)
[2017-07-19] MEDS: predniSONE 20 MG TABLET PO SCH (09:22)
[2017-07-19] MEDS: ALLOPURINOL 300 MG TABLET PO SCH (09:22)
[2017-07-19 10:17] VITALS: BP 122/58
== END 2017-07-19 10:30 | disposition home or self-care (01) | DRG 842 ==
LOC: N.ED 13:02 → N.4E 20:49
PROVIDERS: ADMIT Specialist; ATTEND Specialist